=== PATIENT | female | born 1960 | race Two or more races ===

== ENCOUNTER 2024-03-31 14:48 | Inpatient (IN) | payer OTHER, MEDICAID, MEDICARE, SELFPAY ==
[2024-03-31 15:01] VITALS: BP 138/79; PULSE 76; RESP 16; TEMP 36.8; O2SAT 96; BMI 34.2
--- NOTE | 2024-03-31 15:01 | EKG_ITS ---
[facility] Test Date: 2024-03-31 Pat Name: MARITA ESCALANTE Department: Room: - Gender: Female Simulation Specialist: : [id number] Requested By: Kaushik Washington Order Number: [id number] Reading MD: Kaushik Washington Measurements Intervals [place] Rate: 68 P: -24 NV: 135 QRS: -18 QRSD: 88 T: 15 QT: 406 QTc: 433 Interpretive Statements SINUS RHYTHM Compared to ECG 11/09/2017 09:44:28 Incomplete right bundle-branch block no longer present /store/S0/[id number]/ecg/[id number].pdf
--- NOTE | 2024-03-31 15:01 | XR_ITS ---
Examination: AP chest single view Technique one AP portable upright chest single view Exam date and time: March 31, 2024 1529 hours Comparison November 09, 2017 INDICATIONS: Onset chest pain today FINDINGS: Normal heart size Lungs are clear. The osseous structures are intact IMPRESSION: No active disease
--- NOTE | 2024-03-31 15:01 | XR_ITS ---
EXAMINATION: Ankle, right 3 views . Technique: Ankle AP, oblique, lateral 3 views Date and time of exam: March 31, 2024 1523 hours INDICATIONS: Patient fell today with injury to the ankle, ankle pain. FINDINGS: Acute fracture distal fibular shaft with mild offset Displaced fracture medial malleolus Posterior malleolar region appears intact IMPRESSION: Bimalleolar fractures, bone detail reduced by the splint material
--- NOTE | 2024-03-31 15:03 | EDNOTE_ITS ---
<Statement entered by Jenae Woodward MD - 04/02/24 09:14> As co-signing physician, I was present and available for consult prn. I concur with the plan and care as documented by the midlevel provider. Lower Extremity Injury RME/HPI General Chief Complaint: Ankle/Foot Injury Stated Complaint: TO BE ADMITTED FOR SURGERY ON ANKLE Time Seen by Provider: 03/31/24 14:52 Arrival date/time: 03/31/24 14:48 RME / HPI RME / HPI Narrative: 63-year-old female patient with significant history of hypercholesterolemia, diabetes mellitus, was sent to us by PCP for ankle surgery. Patient's was seen and injury to the right ankle last March 10, went and seen by an orthopedic surgeon in [place], was advised to have surgery however patient opted to have surgery in [place]. Patient was noted to have bilateral malleolus fracture of the right ankle. Patient is not taking any aspirin. Not taking any blood thinner. Related Data Home Medications ?Medication ?Instructions ?Recorded ?Confirmed atorvastatin 10 mg tablet 10 mg PO QDAY 11/09/17 11/11/17 diclofenac sodium 50 mg 50 mg PO BID 11/09/17 11/11/17 tablet,delayed release metformin 500 mg tablet 500 mg PO QDAY 11/09/17 11/11/17 Previous Rx's ?Medication ?Instructions ?Recorded ibuprofen 800 mg tablet 800 mg PO QID PRN fever or pain 11/11/17 #30 tabs Allergies Allergy/AdvReac Type Severity Reaction Status Date / Time No Known Allergies Allergy Verified 03/31/24 14:53 Review of Systems Review of Systems Narrative Review of Systems: Review of system reviewed and within normal limits except mentioned in HPI ED Exam Narrative Physical exam: VITAL SIGNS: Reviewed. GENERAL APPEARANCE: Alert and interactive, follows commands, no acute distress, HEAD AND FACE: Non-traumatic. ENT: PERRL, pink conjunctivitis, eyelid no trauma, Mucous membrane moist. NECK: Supple, nontender, no nuchal rigidity. CHEST: No tenderness, no crepitus, no paradoxical movement, no retractions. LUNGS: Clear, well ventilated, symmetric, no rales, no wheezing, no ronchi, no stridor, good breath sounds bilaterally. HEART: Regular rate, regular rhythm, no murmur, no gallops. ABDOMEN: Soft, positive bowel sounds, nondistended, no guarding, nontender, no rebound, no masses, RECTAL: Deferred. GENITAL: Deferred. NEUROLOGICAL: Gross motor function intact sensory function intact, Appropriate for age. MUSCULOSKELETAL: low back nontender, full range of motion. EXTREMITIES: Right ankle swelling, bruising noted on the posterior aspect of the leg, limited range of motion. No tenderness of the calf muscle. Distal neurovascular status intact, was on a splint. SKIN: Color pink, dry, no rash, no lacerations, no abrasions, no contusions. LYMPHATICS: Deferred. Course Quality Measures none Orders Category Date Time Status COVID-19 Screening Questionnaire NOW Care 03/31/24 15:56 Active Decision to Admit X1 Care 03/31/24 15:56 Completed EKG (ED ONLY) *Do not use* NOW Care 03/31/24 15:02 Completed Consult to Cardiology Stat Cons 03/31/24 15:02 Ordered Consult to Orthopedic Stat Cons 03/31/24 15:07 Ordered EKG (ED Only) Stat Exams 03/31/24 15:01 Draft XR ankle comp RT min 3V Stat Exams 03/31/24 15:01 Completed XR chest 1V Stat Exams 03/31/24 15:01 Completed B-Type Natriuretic Peptide Stat Lab 03/31/24 15:21 Completed CBC Stat Lab 03/31/24 15:21 Completed Comprehensive Metabolic Panel Stat Lab 03/31/24 15:21 Completed Partial Thromboplastin Time Stat Lab 03/31/24 15:21 Completed Prothrombin Time with INR Stat Lab 03/31/24 15:21 Completed Troponin I Stat Lab 03/31/24 15:21 Completed Urinalysis, C/S if Indicated Stat Lab 03/31/24 15:01 Ordered HYDROcodone*/APAP 5/325 [[place] 5/325] Med 03/31/24 15:38 Discontinued 1 tab PO X1 ONE Vital Signs Vital signs: Vital Signs Temperature 98.3 F 03/31/24 15:01 Pulse Rate 76 03/31/24 15:01 Respiratory Rate 16 03/31/24 15:01 Blood Pressure 138/79 H 03/31/24 15:01 Pulse Oximetry (%) 96 03/31/24 15:01 Oxygen Delivery Method Room Air 03/31/24 15:01 Extremity Injury, Lower MDM Narrative MDM Narrative:: 63-year-old female patient with significant history of hypercholesterolemia, di abetes mellitus, was sent to us by PCP for ankle surgery. Patient's was seen and injury to the right ankle last March 10, went and seen by an orthopedic surgeon in [place], was advised to have surgery however patient opted to have surgery in [place]. Patient was noted to have bilateral malleolus fracture of the right ankle. Patient is not taking any aspirin. Not taking any blood thinner. Laboratory workup all came back unremarkable. X-ray of the ankle showed by malleolar fracture. Spoke with Dr. Hancock, petroleum geologist, and examined the patient the emergency room for clearance. Patient data External records reviewed:: None Clinical information provided by:: patient Social determinants that could affect healthcare access:: none Patient has the following chronic illnesses:: Hypertension prediabetic How is presenting disease/condition affected by chronic disease/condition?: uneffected by Evaluation data The following diagnostics were reviewed and interpreted by me:: lab results, radiology exam(s) and EKG tracing(s) Lab and/or radiology exams considered but not ordered:: None Interpretation Summary: laboratory couple came back unremarkable. X-ray of the ankle showed by malleolar fracture. Chest x-ray came back unremarkable. EKG as interpreted by me showed normal sinus rhythm, ventricular rate of [address] segment elevation or depression noted. Medications / Prescriptions Medications or Prescriptions considered but not ordered:: None Medication administrations:: Medication Administration History Discontinued Medications Hydrocodone Bitart/Acetaminophen (Hydrocodone/Apap 5/325 Tablet) 1 tab PO X1 ONE Stop: 03/31/24 15:39 Last Admin: 03/31/24 15:49 Dose: 1 tab Documented By: Taco Consultations Consultation(s) initiated? (list below): Yes Consultation #1 (Physician, Specialty, Details): Dr. Bartholomew thank you Diagnosis Extremity Injury, Lower Differential Diagnosis: ankle sprain and strain and ankle fracture Most likely diagnosis given after review of the tests above:: Bimalleolar fracture ankle Admission Indicated Admission indicated?: indicated Explain why admission is indicated or not indicated:: For further management Admission Request Was there a request for admission?: Yes Admission Attestation Admission request attestation: Discussed case with [Dr. Muse] from Hospitalist service regarding admission. Discussed patients ED course, exam findings, labs, and radiology results. The Hospitalist [agrees] to accept the patient for admission. Disposition Plan Disposition Plan: Admit Discharge Plan Plan Patient Disposition: Admit Acute Care w/in Hospital Prescriptions/Referrals Prescriptions/Med Rec: No Action metformin 500 mg Tablet 500 mg PO QDAY atorvastatin 10 mg Tablet 10 mg PO QDAY diclofenac sodium 50 mg Tablet,Delayed Release (Dr/Ec) 50 mg PO BID ibuprofen 800 mg tablet 800 mg PO QID PRN (Reason: fever or pain) Qty: 30 0RF Referrals: No Primary/Family,Physician [Primary Care Provider] - In 1 week Problem List Clinical Impression: Ankle fracture Patient/Caregiver Discharge Instructions Print Language: Czech Stand Alone Forms: Joann Award Info., Patient Portal Info Letter
[2024-03-31 15:27] LABS: Basophils % (Auto) 1 % (0-2.5); Eosinophils # (Auto) 0.2 Thou/mm3 (0.0-0.5); Eosinophils % (Auto) 3 % (0-10); Hematocrit 42.5 % (36.0-46.0); Hemoglobin 14.7 g/dL (12.0-16.0); Immature Granulocytes % (Auto) 0 % (0-0); Immature Granulocytes Auto 0.01 Thou/mm3 (0.00-0.00); Lymphocytes # (Auto) 2.1 Thou/mm3 (1.0-4.8); Lymphocytes % (Auto) 36 % (10-50); Mean Corpuscular HGB Conc 34.6 g/dl (31.0-37.0); Mean Corpuscular Hemoglobin 31.5 pg (25.0-35.0); Mean Corpuscular Volume 91 fL (80-100); Monocytes # (Auto) 0.8 Thou/mm3 (0.0-0.8); Monocytes % (Auto) 14 % (0-12); Neutrophils # (Auto) 2.7 Thou/mm3 (1.8-7.7); Neutrophils % (Auto) 47 % (37-80); Nucleated Red Blood Cell % 0 /100 WBC (0); Platelet Count 194 Thou/mm3 (140-440); Red Blood Count 4.67 Miln/mm3 (4.00-5.20); White Blood Count 5.8 Thou/mm3 (3.6-11.0)
[2024-03-31 15:46] LABS: B-Type Natriuretic Peptide 27 pg/mL (0-100)
[2024-03-31 15:47] LABS: Alanine Aminotransferase 34 U/L (10-49); Albumin, Serum 4.6 gm/dL (3.4-4.8); Albumin/Globulin Ratio 1.7 (1.2-2.2); Alkaline Phosphatase 102 U/L (46-116); Anion Gap 8 (7-16); Aspartate Amino Transferase 24 U/L (0-34); BUN/Creatinine Ratio 19 Ratio (12-20); Bilirubin,Total 0.6 mg/dL (0.3-1.2); Blood Urea Nitrogen 15 mg/dL (9-23); Calcium 9.7 mg/dL (8.3-10.6); Calcium (Corrected) 9.7 mg/dL (8.5-10.1); Carbon Dioxide 27.2 mMol/L (20.0-31.0); Chloride 107 mMol/L (98-107); Creatinine (Component) 0.8 mg/dL (0.6-1.3); Estimated Creatinine Clearance 65.4 mL/min (>60); Globulin 2.7 gm/dL (2.3-3.5); Glucose 110 mg/dL (74-106); Osmolality,Calculated 284 (275-295); Potassium 4.2 mMol/L (3.4-5.1); Sodium 142 mMol/L (136-145); Total Protein 7.3 gm/dL (5.7-8.2); Troponin I < 0.002 ng/mL (0.0-0.045); eGFR > 60 See Note
[2024-03-31 15:49] LABS: Partial Thromboplastin Time 27.7 Seconds (22.0-36.0); Prothrombin Time 10.7 Seconds (9.0-12.2)
[2024-03-31] MEDS: HYDROcodone/APAP 5/325 TABLET 1 TAB PO (15:49)
[2024-03-31 16:05] VITALS: BP 114/66; PULSE 68; RESP 19; TEMP 36.2; O2SAT 95
[2024-03-31 16:28] VITALS: RESP 95
--- NOTE | 2024-03-31 16:29 | ECHO_ITS ---
Transthoracic Echo Report Ht (in): 60 Wt (lb): 175 Exam Location: Portable Status: Emergency Cuff Setter Overlock: Anisa Stein Indications: Procedure Performed: BP: 132 / 69 HR: 72 Rhythm: Sinus Technical Quality: Fair MEASUREMENTS (Male / Female) Normal Values 2D ECHO LV Diastolic Diameter PLAX 3.8 cm 4.2 - 5.9 / 3.9 - 5.3 cm LV Systolic Diameter PLAX 2.5 cm IVS Diastolic Thickness 1.0 cm 0.6 - 1.0 / 0.6 - 0.9 cm LVPW Diastolic Thickness 1.1 cm 0.6 - 1.0 / 0.6 - 0.9 cm LV Relative Wall Thickness 0.5 LVOT Diameter 1.8 cm LA Volume Index 24.9 cm?/m? 16 - 28 cm?/m? Ascending Aorta Diameter 2.5 cm M-MODE Aortic Root Diameter MM 2.7 cm LA Systolic Diameter MM 3.5 cm LA Ao Ratio MM 1.3 AV Cusp Separation MM 2.1 cm DOPPLER AV Peak Velocity 135.0 cm/s AV Peak Gradient 7.3 mmHg AV Mean Gradient 3.0 mmHg AV Velocity Time Integral 29.5 cm LVOT Peak Velocity 105.0 cm/s LVOT Peak Gradient 4.4 mmHg LVOT Velocity Time Integral 21.8 cm LVOT Cardiac Index 2135.3 cm?/min?m? AV Area Cont Eq vti 1.9 cm? AV Area Cont Eq pk 2.0 cm? MV Peak Velocity 84.6 cm/s MV Peak Gradient 2.9 mmHg MV Mean Velocity 46.9 cm/s MV Mean Gradient 1.0 mmHg MV Area PHT 3.3 cm? Mitral E Point Velocity 63.1 cm/s Mitral A Point Velocity 82.9 cm/s Mitral E to A Ratio 0.8 LV E' Lateral Velocity 12.5 cm/s Mitral E to LV E' Lateral Ratio 5.0 LV E' Septal Velocity 6.6 cm/s Mitral E to LV E' Septal Ratio 9.5 FINDINGS Left Ventricle Normal left ventricular size, wall thickness, systolic function with no obvious regional wall motion abnormalities. The ejection fraction is visually estimated at 60-65%. Right Ventricle The right ventricle is normal in size and systolic function. Left Atrium The left atrium is normal by two-dimensional, color flow and Doppler imaging with no structural abnormalities, no thrombus formation present. Right Atrium The right atrium is normal by two-dimensional imaging, color flow and Doppler imaging with no struct ural abnormalities, no thrombus formation present. Atrial Septum The interatrial septum appears normal with no evidence of a shunt. Aorta The aorta is normal by two-dimensional, color flow and Doppler interrogation. Mitral Valve The mitral valve is normal by two-dimensional, color flow and Doppler interrogation. There is trace mitral valve regurgitation. Aortic Valve The aortic valve is trileaflet and normal by two-dimensional, color flow and Doppler interrogation. There is no significant aortic valve regurgitation. Tricuspid Valve The tricuspid valve is normal by two-dimensional, color flow and Doppler interrogation. There is no significant tricuspid valve regurgitation. Pulmonic Valve The pulmonic valve is not well visualized. There is no significant pulmonic valve regurgitation. Vessels The pulmonary artery appears normal. The inferior vena cava pulmonary and hepatic veins appear toney l. Pericardium The pericardium is normal by two-dimensional imaging. There is no significant pericardial effusion. CONCLUSIONS Normal LV size and function. Estimated EF 60-65% Normal RV size and function Trace MR. Jazmyne Snell (Electronically Signed) Final Date: 01 April 2024 13:20
--- NOTE | 2024-03-31 16:30 | ESHP_ITS ---
<Statement entered by Chiquita Sheikh MD - 04/05/24 12:14> I reviewed above note and agree with findings and plans. I have also personally examined the patient with medicine team and went over assessment and plan with medical team including internship coordinator and resident physician. Documentation for date of: 03/31/24 HPI History of Present Illness Chief complaint: ankle fracture History of present illness: 63-year-old female with past medical history of DM2 and hyperlipidemia was admitted to the hospital on 03/31/2024 after coming to the ED with complaints of fractured right lower leg after tripping over while walking. On assessment patient stated that she was in [place] during and around March 10 she was walking and tripped over and rolled her ankle wish she felt immediate pain afterwards and swelling. She went to hospital in [place] at that time and they did a x-ray of the right lower extremity and they stated that she did not have any fractures and she just take pain medication. She continue walking on the ankle without any brace or wrapping and on March 14 as she had another x- ray done and she was told that she had to missed place bones in her right lower leg. she stayed in [place] until March A- in which she again went to the hospital due to worsening pain and they did another x-ray of her right lower leg and it did show that she did have some fractures, but at this time she decided that she did not want surgery done in [place] and her family also stated that they would prefer to have surgery in the [facility]. In the hospital she had a soft cast done and was told to follow-up when she came back to the [facility]. She recently got back from [place] and decided to come to the ED to get her ankle checked. She denied any shortness of breath, cardiac issues, or burning during urination. ED course: Initially patient came in mildly hypertensive and afebrile. Initial labs for unremarkable with stable hemoglobin at 14.7. Initial imaging included ankle x- ray which showed acute fracture of distal fibula and displaced fracture of medial malleolus, and chest x-ray was unremarkable. EKG shows sinus rhythm. PMH: DM2 and hyperlipidemia Surgical excise: Hysterectomy Social exercise denies any alcohol, smoking, or drugs Review of Systems Review of Systems Narrative Review of Systems: Constitutional: Denies sweats, Denies weight loss/gain, Denies fever, Denies chills. HEENT: Denies hearing loss, Denies ear pain, Denies postnasal drip, Denies double vision, Denies blurry vision. Respiratory: Denies shortness of breath, Denies cough, Denies wheezing. Cardiovascular: Denies chest pain, Denies palpitations, Denies sudden loss of consciousness. GI: Denies blood in stool, Denies constipation, Denies abdominal pain, Denies difficulty swallowing, Denies nausea or vomit. : Denies urinary incontinence, Denies pain while urinating, Denies increased urinary frequency. MSK: Admits joint pain, Admits joint swelling, Denies numbness. Skin: Denies rash, Denies itching, Denies easy bruising. Neuro: Denies headaches, Denies dizziness, Denies seizures. Past Medical History Past Medical History Comments PMH COMMENT: PMH: DM2 and hyperlipidemia Surgical excise: Hysterectomy Social exercise denies any alcohol, smoking, or drugs Exam Vital Signs Temp Pulse Resp BP Pulse Ox O2 Del Method 97.2 F 68 19 114/66 95 Room Air 03/31/24 16:05 03/31/24 16:05 03/31/24 16:05 03/31/24 16:05 03/31/24 16:05 03/31/24 16:05 Narrative Exam General: A/O x3, no acute distress, well-nourished, well-developed Eyes: PERRL, EOMI. Anicteric, vision grossly intact. Ears: No ear pain, no ear discharge, Hearing grossly intact. Nose: No nasal discharge. Mouth/Throat: Dry mucous membranes, no redness, no lesions. Neck: Neck supple, non-tender, no cervical lymphadenopathy. Lungs: Clear SACHIN to auscultation and percussion, No accessory muscle use. Cardio: Normal S1/S2, regular rhythm, no murmurs, no JVD Abdomen: Soft, non-tender, no palpable masses, peristalsis present, no guarding or rebound. Extremities: Symmetrical, no significant deformities, no peripheral edema , non-tender, peripheral pulses presents. R LE swollen upto below knee with bruising, R LE with soft cast with ope toes, able to move toes and have sensation Skin: No rashes, no lesions, warm to touch. Neuro: No focal neurological deficits. Psych: Cooperative, appropriate mood and effect. Results: Labs 03/31/24 15:21 03/31/24 15:21 Labs: Short CBC 03/31/24 Range/Units 15:21 WBC 5.8 (3.6-11.0) Thou/mm3 Hgb 14.7 (12.0-16.0) g/dL Hct 42.5 (36.0-46.0) % Plt Count 194 (140-440) Thou/mm3 BMP 03/31/24 15:21 Sodium 142 Potassium 4.2 Chloride 107 Carbon Dioxide 27.2 BUN 15 Creatinine 0.8 Glucose 110 H Calcium 9.7 Cardiac Enzymes 03/31/24 Range/Units 15:21 Troponin I < 0.002 (0.0-0.045) ng/mL Liver Function 03/31/24 Range/Units 15:21 Total Bilirubin 0.6 (0.3-1.2) mg/dL AST 24 (0-34) U/L ALT 34 (10-49) U/L Alkaline Phosphatase 102 (46-116) U/L Albumin 4.6 (3.4-4.8) gm/dL Quality Measures Quality Measures none Advance care planning discussed with:: patient and spouse Medications Home Medications and Allergies Home Medications ?Medication ?Instructions ?Recorded ?Confirmed ?Type atorvastatin 10 mg tablet 10 mg PO QDAY 11/09/17 11/11/17 History diclofenac sodium 50 mg 50 mg PO BID 11/09/17 11/11/17 History tablet,delayed release metformin 500 mg tablet 500 mg PO QDAY 11/09/17 11/11/17 History Allergies Allergy/AdvReac Type Severity Reaction Status Date / Time No Known Allergies Allergy Verified 03/31/24 14:53 Visit Medications Acetaminophen (Acetaminophen 325 Mg Tablet) 650 mg PO Q6H PRN PRN Reason: pain and Fever >100.4 Stop: 04/30/24 16:23 Hydrocodone Bitart/Acetaminophen (Hydrocodone/Apap 5/325 Tablet) 1 tab PO Q4HR PRN PRN Reason: PAIN SCALE 4-6 (Moderate Stop: 04/05/24 16:23 Dextrose (Dextrose 50%-Water Inj 50 Ml Syringe) 25 ml IV Q15MIN PRN PRN Reason: BG 50-70 responsive npo pt Stop: 04/30/24 16:23 Dextrose (Dextrose 50%-Water Inj 50 Ml Syringe) 50 ml IV Q15MIN PRN PRN Reason: BG <50 OR BG <70 & pt unresponsive Stop: 04/30/24 16:23 Glucagon (Glucagon Inj 1 Mg Vial) 1 mg IM Q15MIN PRN PRN Reason: BG <70, and no IV access Insulin Human Lispro (Insulin Lispro (Admelog) 1 Unit/0.01 Ml Unit) 0 unit SC AC ARIAN; Protocol Stop: 04/30/24 16:59 Morphine Sulfate (Morphine Sulf Inj 10 Mg/Ml Vial) 1 mg IVP Q4H PRN PRN Reason: PAIN SCALE 7-10 (Severe Stop: 04/05/24 16:23 Ondansetron HCl (Ondansetron Inj 2 Mg/Ml Inj 2 Ml) 4 mg IV Q6H PRN; Protocol PRN Reason: NAUSEA OR VOMITING Stop: 04/30/24 16:23 Sennosides (Senna Tablet) 1 tab PO QDAY PRN; Protocol PRN Reason: constipation Stop: 04/30/24 16:23 Discontinued Medications Hydrocodone Bitart/Acetaminophen (Hydrocodone/Apap 5/325 Tablet) 1 tab PO X1 ONE Stop: 03/31/24 15:39 Last Admin: 03/31/24 15:49 Dose: 1 tab Assessment & Plan Plan 63-year-old female with past medical history of DM2 and hyperlipidemia was admitted to the hospital on 03/31/2024 for acute fracture of distal fibula and displaced fracture of medial malleolus. #Acute fracture of distal fibula #Displaced fracture of medial malleolus ? Patient stated that she rolled her ankle after tripping while walking in [place] and had also been walking on her ankle like this for 5 days before being told that she had a fracture and placed on a soft cast ?ankle x-ray which showed acute fracture of distal fibula and displaced fracture of medial malleolus - Muse perioperative risk of 0.2% risk of myocardial infarction or cardiac arrest intraoperatively or upto 30 days post-op. -RCRI 0 points, 3.9% risk of major cardiac event Plan: ? Will place n.p.o. after midnight for possible surgical intervention ? Holding anticoagulation for now in the setting of possible surgical intervention ?Cardiology consulted for cardiac clearance ? Orthopedic surgeon consulted orthopedic recommendations #DM2 ? A1c for a.m. labs ? Glucose 110 today - Monitor BMP #Hyperlipidemia ? Will restart patient's atorvastatin Disposition: Patient admitted to telemetry for fibula fracture (R). Diet: carb low, NPO midnight GI prophylaxis: not indicated DVT prophylaxis: SCDs Code: Full code Case disclosed with Attending Dr. Sheikh and My senior Dr. Muse PGY2. Alexis Lloydpo PGY1 Senior Resident Attestation: The patient is a 63-year-old female with significant past medical history of diabetes mellitus type 2 and hyperlipidemia presented with chief complaint of right ankle pain after tripping over while walking. The incidence was on March 10 while she was in [place], where she was recommended to undergo surgery but she wanted to get her surgery done in the [place]. X-ray right ankle is significant for acute fracture of distal fibula and displaced fracture of medial malleolus. In the ED her vitals were fairly stable, EKG and CXR was unremarkable. Cardiology consultation was done with Dr. Hancock, and ordered HERMINIO for cardiac clearance. Sri on board for orthopedic surgery who will proceed with ORIF tomorrow morning. Patient is kept n.p.o. after midnight and is currently not on any chemical DVT prophylaxis. We will continue to monitor BMP for blood sugar in the morning, and decide on insulin regimen. I discussed with and supervised the internship coordinator physician involved in the care of this patient. I personally saw and examined the patient and discussed the assessment and plan with the entire medicine team, including my attending. I agree with the assessment and plan as documented above. David Muse MD PGY2 Internal Medicine
--- NOTE | 2024-03-31 16:41 | PC.CC ---
Patient is a 63 year-old female who presents to the hospital for surgery of ankle. Stephanie JENSEN made [id number] contact with patient. ASW introduced self, role, and reason for visit. Patient appeared alert and oriented to self, location, and situation. Patient was pleasant and engaged in initial assessment. Patient reports that should she not be able to make her own medical decisions her , Patrice Ryan would be her medical decision maker. Patient reports she slipped and fell at home on March 10, 2024 while at home. Patient stated prior to this fall she was able to ambulate independently and complete her own ADLs. However, since the fall she has been using a wheelchair and walker to help with ambulation and her has been helping her complete her ADLs. Patient receives primary care with Sujata Berman. Upon discharge the patient plans on going home but is willing to go to a SNF for rehab as it is just her and her at home and he at times struggles with helping her complete her ADLs. human services instructor to follow-up with any discharge needs.
[2024-03-31 18:10] VITALS: BP 128/84; PULSE 77; RESP 19; TEMP 36.6; O2SAT 94
[2024-03-31] MEDS: ONDANSETRON INJ 2 MG/ML INJ 2 ML 4 MG IV (18:53)
[2024-03-31] MEDS: MORPHINE SULF INJ 10 MG/ML VIAL IVP (18:53)
[2024-03-31 19:36] VITALS: BMI 33.6
[2024-03-31 20:00] VITALS: BP 121/71; PULSE 64; RESP 18; TEMP 36.7; O2SAT 96
[2024-03-31 22:13] LABS: Collection Type, Urine Clean Catch; RBC,Urine 0 /hpf (0-3)
[2024-03-31 22:40] LABS: Bilirubin,Urine Negative (Negative); Blood,Urine Negative (Negative); Clarity,Urine Clear (Clear/Hazy); Color,Urine Lt-Yellow (Lt Yel-Yel); Culture Indicated,Urine Not Indicated; Glucose, Urine Negative (Negative); Ketones,Urine Negative (Negative); Leukocyte Esterase,Urine Negative (Negative); Nitrite,Urine Negative (Negative); Protein,Urine Negative (Neg - Trace); Specific Gravity,Urine 1.009 (1.001-1.035); Squamous Epithelial Cell,Urine 1 /hpf (0-5); Urobilinogen,Urine Negative mg/dL (0.0-1.0); WBC,Urine 1 /hpf (0-5)
--- NOTE | 2024-03-31 23:51 | ESCONSULT_ITS ---
RE: MARITA ESCALANTE : 1960 DATE OF CONSULTATION: 03/31/2024 CONSULTING PHYSICIAN: Dr. Bartholomew. REASON FOR CONSULTATION: Evaluation of cardiac clearance for surgery for fracture of leg HISTORY OF PRESENT ILLNESS: The patient is a 63-year-old female with a history of hypertension, diabetes mellitus, hypercholesterolemia, possible fracture of the right leg after over while walking. The patient apparently was in [place] during [place] time. She was walking and rolled her ankle. She immediately fell afterwards. She did go to the hospital in [place]. At that time, they did an x-ray and she continued to walk, ankle without any brace and she had another x-ray done. She was told that she had misplaced the bone, but she stayed in [place] until March and she again went to the hospital due to worsening of pain. Did have fractures, but now she recently got a fracture from [place] and decided to go to the emergency room where she found a fracture of the hip and she also has a history of hypertension. No cardiac history, but because of the hypertension history, cxardiac clearance requested , the patient is found to have acute fracture of the distal fibula and distal fracture of the medial malleolus and recommended to have surgical intervention. The patient has no cardiac history. No chest pain or shortness of breath. She has never had any cardiac workup, never been told to have heart problems, stroke. She does walk more than 5 blocks without any restrictions. She can also climb more than 2 flights of stairs, suggesting a good effort tolerance prior to the fall. ALLERGIES: NONE. MEDICATIONS: The patient takes atorvastatin 10 mg daily, metformin 500 mg daily. SOCIAL HISTORY: The patient is not a smoker, does drink alcoholic beverages. FAMILY HISTORY: Noncontributory. REVIEW OF SYSTEMS: CARDIOVASCULAR: no limitations. GASTROINTESTINAL: No history of nausea or vomiting. GENITOURINARY: No history of frequency, urgency or dysuria. PHYSICAL EXAMINATION: GENERAL: A well-nourished female, alert, awake, comfortable, in no acute distress. VITAL SIGNS: Blood pressure 120/70; pulse 64, regular; respirations 16; temperature normal. HEENT: Head is atraumatic, normocephalic. Eyes normal. ENT normal. NECK: Supple. No JVD. CHEST: Symmetrical. LUNGS: Clear. HEART: S1 and S2 regular. S4 gallop heard. ABDOMEN: soft GENITOURINARY AND RECTAL: Not performed. CENTRAL NERVOUS SYSTEM: Normal. Electrocardiogram showed sinus rhythm, within normal limits and nonspecific changes. IMPRESSION/ASSESSMENT: Fracture of the fibula and malleolus. RECOMMENDATIONS: Recommended to have surgery. Based on today's clinical exam, she appears low cardiac risk for surgery under general anesthesia. Recommend getting a cardiac echo in the morning as well cardiac workup. I would like to thank for referring this patient with cardiovascular issues. I would be glad to follow the patient with you. DT: 22:05:34 TT: 22:29:00 Ref: [id number] - TID: [id number] MTDD
[2024-04-01] VITALS (12 sets, daily range): BP systolic 109–153; BP diastolic 61–89; PULSE 67–103; RESP 12–95; TEMP 36.1–36.9; O2SAT 93–99
[2024-04-01 05:52] LABS: Basophils % (Auto) 1 % (0-2.5); Eosinophils # (Auto) 0.2 Thou/mm3 (0.0-0.5); Eosinophils % (Auto) 4 % (0-10); Hematocrit 40.1 % (36.0-46.0); Hemoglobin 13.5 g/dL (12.0-16.0); Immature Granulocytes % (Auto) 0 % (0-0); Immature Granulocytes Auto 0.01 Thou/mm3 (0.00-0.00); Lymphocytes % (Auto) 39 % (10-50); Mean Corpuscular HGB Conc 33.7 g/dl (31.0-37.0); Mean Corpuscular Hemoglobin 31.3 pg (25.0-35.0); Mean Corpuscular Volume 93 fL (80-100); Monocytes # (Auto) 0.7 Thou/mm3 (0.0-0.8); Monocytes % (Auto) 13 % (0-12); Neutrophils # (Auto) 2.2 Thou/mm3 (1.8-7.7); Neutrophils % (Auto) 44 % (37-80); Nucleated Red Blood Cell % 0 /100 WBC (0); Platelet Count 159 Thou/mm3 (140-440); RDW Standard Deviation 41.1 fL (36.4-46.3); Red Blood Count 4.31 Miln/mm3 (4.00-5.20); White Blood Count 5.1 Thou/mm3 (3.6-11.0)
[2024-04-01 06:03] LABS: Glucose Estimated Average 143 mg/dL (80-131); Hemoglobin A1C 6.6 % Hgb (4.8-6.0)
[2024-04-01 06:04] LABS: Partial Thromboplastin Time 28.2 Seconds (22.0-36.0); Prothrombin Time 10.9 Seconds (9.0-12.2)
[2024-04-01 06:15] LABS: Alanine Aminotransferase 32 U/L (10-49); Albumin, Serum 4.4 gm/dL (3.4-4.8); Anion Gap 8 (7-16); Aspartate Amino Transferase 22 U/L (0-34); BUN/Creatinine Ratio 21 Ratio (12-20); Bilirubin,Total 0.6 mg/dL (0.3-1.2); Blood Urea Nitrogen 19 mg/dL (9-23); Calcium 9.6 mg/dL (8.3-10.6); Carbon Dioxide 28.6 mMol/L (20.0-31.0); Chloride 105 mMol/L (98-107); Creatinine (Component) 0.9 mg/dL (0.6-1.3); Estimated Creatinine Clearance 57.6 mL/min (>60); Glucose 104 mg/dL (74-106); Magnesium 2.1 mg/dL (1.6-2.6); Osmolality,Calculated 285 (275-295); Phosphorous 4.5 mg/dL (2.4-5.1); Potassium 4.3 mMol/L (3.4-5.1); Sodium 142 mMol/L (136-145); Total Protein 6.6 gm/dL (5.7-8.2); eGFR > 60 See Note
[2024-04-01 06:16] LABS: Alkaline Phosphatase 92 U/L (46-116); Calcium (Corrected) 9.6 mg/dL (8.5-10.1); Cardiac Risk Estimate 2.8 RATIO (3.7-5.6); Cholesterol 94 mg/dL (132-200); Globulin 2.2 gm/dL (2.3-3.5); HDL Cholesterol 33 mg/dL (40-60); LDL Cholesterol,Calculated 41 mg/dL (0-130); Triglycerides 101 mg/dL (30-150)
--- NOTE | 2024-04-01 10:05 | ESPR_ITS ---
<Statement entered by Chiquita Sheikh MD - 04/05/24 12:16> I reviewed above note and agree with findings and plans. I have also personally examined the patient with medicine team and went over assessment and plan with medical team including campus recruiting internship and resident physician. Documentation for date of: 04/01/24 Subjective Subjective Interval history: Patient was seen at bedside this morning. No overnight events. Patient states that her pain is well-controlled today. She underwent open reduction with internal fixation of fractures by orthopedic surgeon. No other complaints at this time. Echo showed EF of 60-65%. Exam Vital Signs Temp Pulse Resp BP Pulse Ox O2 Del Method 97.9 F 67 15 125/82 96 Room Air 04/01/24 08:00 04/01/24 08:00 04/01/24 08:00 04/01/24 08:00 04/01/24 08:00 04/01/24 08:00 Narrative Exam General: A/O x3, no acute distress, well-nourished, well-developed Eyes: PERRL, EOMI. Anicteric, vision grossly intact. Ears: No ear pain, no ear discharge, Hearing grossly intact. Nose: No nasal discharge. Mouth/Throat: Dry mucous membranes, no redness, no lesions. Neck: Neck supple, non-tender, no cervical lymphadenopathy. Lungs: Clear SACHIN to auscultation and percussion, No accessory muscle use. Cardio: Normal S1/S2, regular rhythm, no murmurs, no JVD Abdomen: Soft, non-tender, no palpable masses, peristalsis present, no guarding or rebound. Extremities: Symmetrical, no significant deformities, no peripheral edema , non-tender, peripheral pulses presents. R LE covered with soft cast open at toes. able to move toes. Skin: No rashes, no lesions, warm to touch. Neuro: No focal neurological deficits. Psych: Cooperative, appropriate mood and effect. Objective Labs 04/01/24 05:16 04/01/24 05:16 Labs: Laboratory Results - last 24 hr 03/31/24 03/31/24 04/01/24 15:21 21:00 05:16 WBC 5.8 5.1 RBC 4.67 4.31 Hgb 14.7 13.5 Hct 42.5 40.1 MCV 91 93 MCH 31.5 31.3 MCHC 34.6 33.7 RDW Std Deviation 40.0 41.1 Plt Count 194 159 D Neut % (Auto) 47 44 Lymph % (Auto) 36 39 [place] % (Auto) 14 H 13 H Eos % (Auto) 3 4 Baso % (Auto) 1 1 Neut # (Auto) 2.7 2.2 Lymph # (Auto) 2.1 2.0 Parke # (Auto) 0.8 0.7 Eos # (Auto) 0.2 0.2 Baso # (Auto) 0.0 0.0 Immature Gran # (Auto) 0.01 H 0.01 H Absolute Nucleated RBC 0.00 0.00 Immature Gran % 0 0 Nucleated RBC % 0 0 PT 10.7 10.9 INR 1.0 1.0 APTT 27.7 28.2 Sodium 142 142 Potassium 4.2 4.3 Chloride 107 105 Carbon Dioxide 27.2 28.6 Anion Gap 8 8 BUN 15 19 Creatinine 0.8 0.9 Estim Creat Clear Calc 65.4 57.6 L eGFR > 60 > 60 BUN/Creatinine Ratio 19 21 H Glucose [address] Glu mg/dL 143 H Hemoglobin A1c 6.6 H Calculated Osmolality 284 285 Calcium 9.7 9.6 Corrected Calcium 9.7 9.6 Phosphorus 4.5 Magnesium 2.1 Total Bilirubin 0.6 0.6 AST 24 22 ALT 34 32 Alkaline Phosphatase 102 92 Troponin I < 0.002 B-Natriuretic Peptide 27 Total Protein 7.3 6.6 Albumin 4.6 4.4 Globulin 2.7 2.2 L Albumin/Globulin Ratio 1.7 2.0 Triglycerides 101 Cholesterol 94 L LDL Cholesterol, Calc 41 HDL Cholesterol 33 L Cholesterol/HDL Ratio 2.8 L Ur Collection Type Clean Catch Urine Color Lt-Yellow Urine Clarity Clear Urine pH 6.0 Ur Specific [place] 1.009 Urine Protein Negative Urine Glucose (UA) Negative Urine Ketones Negative Urine Blood Negative Urine Nitrite Negative Urine Bilirubin Negative Urine Urobilinogen (Auto) Negative Ur Leukocyte Esterase Negative Urine RBC 0 Urine WBC 1 Ur Squamous Epith Cells 1 Urine Bacteria None Ur Culture Indicated? Not Indicated Quality Measures Quality Measures none Advance care planning discussed with:: patient, spouse and child Assessment & Plan Assessment Current Active Medications: Generic Name Dose Route Start Last Admin Trade Name Freq PRN Reason Stop Dose Admin Acetaminophen 650 mg 03/31/24 16:24 Acetaminophen 325 Mg Tablet PO 04/30/24 16:23 Q6H PRN pain and Fever >100.4 Hydrocodone Bitart/Acetaminophen 1 tab 03/31/24 16:24 Hydrocodone/Apap 5/325 Tablet PO 04/05/24 16:23 Q4HR PRN PAIN SCALE 4-6 (Moderate Morphine Sulfate 1 mg 03/31/24 16:24 03/31/24 18:53 Morphine Sulf Inj 10 Mg/Ml Vial IVP 04/05/24 16:23 1 mg Q4H PRN Administration PAIN SCALE 7-10 (Severe Ondansetron HCl 4 mg 03/31/24 16:24 03/31/24 18:53 Ondansetron Inj 2 Mg/Ml Inj 2 Ml IV 04/30/24 16:23 4 mg Q6H PRN Administration NAUSEA OR VOMITING Protocol Sennosides 1 tab 03/31/24 16:24 Senna Tablet PO 04/30/24 16:23 QDAY PRN constipation Protocol Plan 63-year-old female with past medical history of DM2 and hyperlipidemia was admitted to the hospital on 03/31/2024 for acute fracture of distal fibula and displaced fracture of medial malleolus. #Acute fracture of distal fibula #Displaced fracture of medial malleolus #S/p open reduction with internal fixation of fractures ? Patient stated that she rolled her ankle after tripping while walking in [place] and had also been walking on her ankle like this for 5 days before being told that she had a fracture and placed on a soft cast ?ankle x-ray which showed acute fracture of distal fibula and displaced fracture of medial malleolus - Almaz perioperative risk of 0.2% risk of myocardial infarction or cardiac arrest intraoperatively or upto 30 days post-op. -RCRI 0 points, 3.9% risk of major cardiac event -Echo showed EF of 60-65%. -She underwent open reduction with internal fixation of fractures by orthopedic surgeon. Plan: ? Holding anticoagulation for now in the setting of possible surgical intervention ?Cardiology consulted for cardiac clearance, patient cleared ? Orthopedic surgeon consulted orthopedic recommendations #DM2 ? A1c 6.6 ? Glucose 104 today -Will continue to monitor #Hyperlipidemia ? Will restart patient's atorvastatin Disposition: Patient admitted to telemetry s/p open reduction with internal fixation Diet: carb low GI prophylaxis: not indicated DVT prophylaxis: SCDs Code: Full code Case disclosed with Attending Dr. Sheikh and My senior Dr. Muse PGY2. Alexis Moreadriel Maxwell PGY1 Senior Resident Attestation: The patient is a 63-year-old female with significant past medical history of diabetes mellitus type 2 and hyperlipidemia presented with chief complaint of right ankle pain after tripping over while walking. The incidence was on March 10 while she was in [place], where she was recommended to undergo surgery but she wanted to get her surgery done in the [place]. She was cleared by production planning manager Dr. Hancock for surgery, as LVEF was 60 to 65%. Patient underwent: 1. Open reduction internal fixation of right lateral malleolus with 3 hole distal fibular interlocking screw 2 open reduction internal fixation of medial malleolus with 2 cannulated screw We will continue to manage her pain. The patient will be getting PT evaluation tomorrow, and possible DC to SNF after that. I discussed with and supervised the campus recruiting internship physician involved in the care of this patient. I personally saw and examined the patient and discussed the assessment and plan with the entire medicine team, including my attending. I agree with the assessment and plan as documented above. David Muse MD PGY2 Internal Medicine
--- NOTE | 2024-04-01 10:35 | XR_ITS ---
Examination: Right ankle 2 views Fluoroscopy Exam date and time: April 01, 2024 at 1349 hrs. Indications: Bimalleolar ankle fractures, operative reduction internal fixation fracture today. Technique And Findings: Operative reduction internal fixation fractures distal fibular shaft and medial malleolus Anatomic alignment Orthopedic hardware satisfactory position Fluoroscopy 34 seconds radiation dose 1.19 milligray Impression: Operative reduction internal fixation bimalleolar fractures with anatomic alignment
--- NOTE | 2024-04-01 13:31 | SUR.PHASEI ---
1331: Pt. AAOx4, vitals stable, breathing unlabored, complaint of slight pain, will give pain medicine, dressing to right ankle CDI, no active bleed noted, bilateral popliteal pulses strong and regular, cap refill to bilateral feet less than 3 seconds, report received from MD Lux and Michael FELIX.
[2024-04-01] MEDS: fentaNYL CIT INJ 50 mCg/ML AMP 2ML IV ×2 (13:44→14:01)
--- NOTE | 2024-04-01 13:47 | XR_ITS ---
EXAMINATION: Ankle, right 3 views . Technique: Ankle AP, oblique, lateral 3 views Date and time of exam: April 01, 2024 1402 hrs. Indications: Postop reduction ankle fractures Findings: Operative reduction internal fixation lateral and medial malleolar fractures with anatomic alignment Orthopedic hardware is satisfactorily positioned No ankle dislocation Impression: Operative reduction internal fixation bimalleolar fractures with satisfactory alignment
--- NOTE | 2024-04-01 13:49 | ESOP_ITS ---
Date of Procedure 04/01/24 Pre Op Diagnosis Over 2 weeks old bimalleolar displaced fracture right ankle Post Op Diagnosis Same Procedure 1. Open reduction internal fixation of right lateral malleolus with 3 hole distal fibular interlocking screw 2 open reduction internal fixation of medial malleolus with 2 cannulated screw Findings It is a bimalleolar fracture with the displacement. Ankle mortise is also displaced or widened. Procedure Description The patient was given general endotracheal anesthesia. Following that part was thoroughly prepped and draped. Intravenous antibiotics was given at the time of anesthesia 1. Open reduction internal fixation of lateral malleolus. A skin incision was made from the tip of lateral malleolus extending proximally along the posterior lateral border of the lateral malleolus and the fibula. Length of the incision was about 4 to 5 inches long. Deeper dissection was carried out. Care was taken not to damage the sural nerve. The muscles were reflected from the posterior lateral aspect. Soft tissue was reflected. Fracture fragment was exposed. With the help of curette and [place] the soft tissue interposed between the fracture fragment was removed. Following that with the help of reduction clamp the fracture was reduced. Ankle mortise was very well-maintained Using lag technique drill hole was made from the anterior surface to the posterior surface and partially-threaded 4.0 mm cancellous screw was placed. It held at the fracture fragment together Following that plate was mounted over the lateral aspect of the fibula. 1 cortical screw was placed distally and 1 proximally. Following that 4 more interlocking screw was placed distally. 1 cortical screw was placed proximally and 1 interlocking screw was placed proximally. Wound was irrigated with antibiotic solution every 4 to 5 minutes. The position of the fracture and the screws were checked regularly before putting it. Ankle mortise was very well- maintained The soft tissue was then closed with the help of his 2-0 Vicryl 2 open reduction internal fixation of medial malleolus. Another a skin incision was made from the tip of medial malleolus extending proximally for about 3 to 4 inches. Deeper dissection carried out. The soft tissue was then reflected from the distal tibia and medial malleolus. Saphenous vein was isolated. Following that the fracture was exposed and reduced with the help of reduction clamp. Following that 2 guidepin was passed from the distal fracture fragment into the proximal 1. Position was checked under C arm. Following that after measuring appropriate size cannulated screw was placed. Drilling was done into the near cortex and then appropriate size screw was placed. The guidepin was removed. Ankle mortise was checked and found to be very well-maintained. Medial malleolus was very well reduced Soft tissue was closed with 2-0 Vicryl in interrupted fashion. Skin was closed with jo ann The skin on the lateral side was also closed with a jo ann To cleaning the wound with hydrogen peroxide solution a sterile dressing was applied. Short leg splint was applied and tourniquet pressure was released Patient tolerated procedure very well. Estimated blood loss 10 mL mL. Prognosis in this case is good. Anesthesia GETA and other Pathology / specimen None Estimated Blood Loss 10 Surgeon Hua Bartholomew MD Surgical Staff Operation Date: 04/01/24 10:30 Case Staff Anesthesiologist: Oc Lux RNcompliance attorney: Ria Raygoza
[2024-04-01] MEDS: CYCLObenzaPRINE 5 MG TABLET 10 MG PO (13:51)
--- NOTE | 2024-04-01 14:19 | SUR.PHASEI ---
1419: Pt. AAOx4, vitals stable, breathing unlabored, no complaint of pain or nausea, dressing to right ankle CDI, no active bleed noted, pt. able to wiggle bilateral toes, cap refill to bilateral toes less than 3 seconds, pt. tolerated bites of jello well, gave report to Maya FELIX prior to transfer to room 374A.
--- NOTE | 2024-04-01 15:10 | PC.SS ---
Follow up note: SS spoke to daughter, Tamela, regarding final d/c plans. SS discussed SNF vs HH. Patient went to surgery today. Daughter states she will be speaking with her father and the rest of the family to decide. SS sent out inquiry to all local SNF's as well as completed [facility]. Pending decision by family and PT evaluation.
--- NOTE | 2024-04-01 15:39 | PD.ANESPROG ---
Documentation for date of: 04/01/24 ANESTHESIA NOTE: Patient had general LMA anesthesia and R adductor canal and popliteal nerve blocks for R ankle ORIF earlier today. Pre-op, her R leg and foot was in cast, which was removed intra-op and showed swelling and bruising for R distal LE. She did well intra-op and in PACU and her post op pain was controlled and was later transferred out of PACU. Oc Lux MD Anesthesia Progress Note Progress Note Most recent Vital Signs: Last Vital Signs Temp 97.9 F 04/01/24 14:16 Pulse 80 04/01/24 14:16 Resp 12 04/01/24 14:16 BP 134/79 H 04/01/24 14:16 Pulse Ox 97 04/01/24 14:16 O2 Del Method Room Air 04/01/24 08:00 O2 Flow Rate 2 04/01/24 14:16
--- NOTE | 2024-04-01 16:20 | ESCONSULT_ITS ---
RE: HERNANDEZ LANDEROS : 1960 DATE OF CONSULTATION: 03/31/2024 Thank you, Dr. Elkins, for asking me to consult with the patient whom I saw on 03/31/2024. HISTORY OF PRESENT COMPLAIN: As per history available, the patient was in [place] when she tripped and fell. The injury happened about two and half weeks back or so. The patient went to hospital in [place] and x-ray was obtained. The patient was told that she has broken ankle and she needed surgery. However, she decided to have surgery done in the [place], so she came back here. I was contacted by Dr. Rodríguez on 03/31/2024 about the patient. I advised Dr. Rodríguez to send the patient to the emergency room and we will take care from there. The patient was sent to the emergency room and from there I was contacted. The patient has pain and swelling of the right ankle. PAST MEDICAL HISTORY: The patient has a history of diabetes mellitus and hyperlipidemia. PAST SURGICAL HISTORY: Include hysterectomy. DRUG HISTORY: The patient is on metformin, pain medication, and atorvastatin. ALLERGIES: NIL KNOWN. FAMILY HISTORY AND SOCIAL HISTORY: The patient is retired, nonsmoker and does not drink. PHYSICAL EXAMINATION: GENERAL: Fully alert and oriented lady. VITAL SIGNS: Pulse is 74 per minute. Blood pressure is 120/76. NECK: Soft, supple. No mass felt. Trachea centrally placed. CARDIOVASCULAR SYSTEM: First and second heart sound normal. No murmur heard. RESPIRATORY SYSTEM: Bilateral vesicular breath sounds. CHEST: Clear. ABDOMEN: Soft. No mass felt. Bowel sounds present. EXTREMITIES: Right ankle examination reveals swelling 1+. There is 2+ tenderness. Neurovascular: It is intact. DIAGNOSTIC DATA: X-ray revealed a displaced bimalleolar fracture of the right ankle. The patient and her family were explained that she needs fixation with the screws and plate. Risks with anesthesia was explained and that includes, but not limited to reaction to anesthetics agents, cardiac arrest, or rarely it might be fatal. Risk with operation includes infection and if that happens, the patient may need further surgical procedure. I also explained that since the fracture is two and a half weeks old, it may be difficult to reduce it . At the same time, I told her it is very much possible to reduce it quite well. No guarantees given regarding the outcome of the procedure. Even after healing up quite good, the patient may have stiffness with range of motion restricted. The patient is fully aware of that. The patient was seen by Dr. Gary Hancock, the metal fence erector and has been cleared for surgical procedure. Accordingly surgery is booked for 04/01/2024. Appropriate lab was done. DT: 13:44:54 TT: 15:51:00 Ref: [id number] - TID: [id number]
--- NOTE | 2024-04-01 16:21 | PC.NURSE ---
NOTIFIED DR. Mejia PATIENT IS DIABETIC NO SLIDING SCALE OR BLOOD SUGAR CHECKS. DR. Mejia WILL ADD NEW ORDERS
[2024-04-01] MEDS: ceFAZolin/D5W 1 GM IVPB 1 GM/50 ML BAG IV (17:58)
[2024-04-01] MEDS: INSULIN LISPRO (AdmeLOG) 1 UNIT/0.01 ML UNIT 2 UNIT SC (22:47)
[2024-04-02] VITALS (9 sets, daily range): BP systolic 96–128; BP diastolic 52–72; PULSE 60–83; RESP 16–95; TEMP 36.2–36.9; O2SAT 94–95
--- NOTE | 2024-04-02 00:58 | PC.NURSE ---
message sent to [facility] constance cee.
--- NOTE | 2024-04-02 01:03 | PC.NURSE ---
engineering went in pt room and notified rn unable to apply overhead trapeze at this time because pt is on the bed.
[2024-04-02] MEDS: ceFAZolin/D5W 1 GM IVPB 1 GM/50 ML BAG IV (01:55)
[2024-04-02 05:35] LABS: Basophils % (Auto) 0 % (0-2.5); Eosinophils % (Auto) 0 % (0-10); Hematocrit 36.2 % (36.0-46.0); Hemoglobin 12.8 g/dL (12.0-16.0); Immature Granulocytes % (Auto) 0 % (0-0); Immature Granulocytes Auto 0.04 Thou/mm3 (0.00-0.00); Lymphocytes # (Auto) 1.4 Thou/mm3 (1.0-4.8); Lymphocytes % (Auto) 12 % (10-50); Mean Corpuscular HGB Conc 35.4 g/dl (31.0-37.0); Mean Corpuscular Hemoglobin 31.7 pg (25.0-35.0); Mean Corpuscular Volume 90 fL (80-100); Monocytes # (Auto) 0.4 Thou/mm3 (0.0-0.8); Monocytes % (Auto) 4 % (0-12); Neutrophils # (Auto) 9.3 Thou/mm3 (1.8-7.7); Neutrophils % (Auto) 83 % (37-80); Nucleated Red Blood Cell % 0 /100 WBC (0); Platelet Count 191 Thou/mm3 (140-440); RDW Standard Deviation 37.2 fL (36.4-46.3); Red Blood Count 4.04 Miln/mm3 (4.00-5.20); White Blood Count 11.2 Thou/mm3 (3.6-11.0)
[2024-04-02 06:29] LABS: Alanine Aminotransferase 26 U/L (10-49); Albumin, Serum 4.5 gm/dL (3.4-4.8); Albumin/Globulin Ratio 1.9 (1.2-2.2); Alkaline Phosphatase 91 U/L (46-116); Anion Gap 10 (7-16); Aspartate Amino Transferase 18 U/L (0-34); BUN/Creatinine Ratio 26 Ratio (12-20); Bilirubin,Total 0.5 mg/dL (0.3-1.2); Blood Urea Nitrogen 18 mg/dL (9-23); Calcium 9.8 mg/dL (8.3-10.6); Calcium (Corrected) 9.8 mg/dL (8.5-10.1); Carbon Dioxide 24.3 mMol/L (20.0-31.0); Chloride 104 mMol/L (98-107); Creatinine (Component) 0.7 mg/dL (0.6-1.3); Estimated Creatinine Clearance 74.1 mL/min (>60); Globulin 2.4 gm/dL (2.3-3.5); Glucose 161 mg/dL (74-106); Magnesium 2.1 mg/dL (1.6-2.6); Osmolality,Calculated 280 (275-295); Potassium 3.9 mMol/L (3.4-5.1); Sodium 138 mMol/L (136-145); Total Protein 6.9 gm/dL (5.7-8.2); eGFR > 60 See Note
--- NOTE | 2024-04-02 10:53 | ESPR_ITS ---
<Statement entered by Chiquita Sheikh MD - 04/05/24 12:21> I reviewed above note and agree with findings and plans. I have also personally examined the patient with medicine team and went over assessment and plan with medical team including international travel consultant and resident physician. Documentation for date of: 04/02/24 Subjective Subjective Interval history: Patient was seen at bedside this morning. No overnight events. Spoke with orthopedic surgeon who mentions to start patient on aspirin 81 twice daily for total 2 weeks and then discontinue. Patient is still pending physical therapy as well as [facility] facility placement. Orthopedic surgeon stated patient was good to be discharged home and to follow-up with him as an outpatient. No other complaints at this time. Exam Vital Signs Temp Pulse Resp BP Pulse Ox O2 Del Method O2 Flow Rate 97.4 F 69 16 106/64 94 L Room Air 2 04/02/24 08:00 04/02/24 08:03 04/02/24 08:03 04/02/24 08:00 04/02/24 08:00 04/02/24 08:00 04/01/24 20:00 Narrative Exam General: A/O x3, no acute distress, well-nourished, well-developed Eyes: PERRL, EOMI. Anicteric, vision grossly intact. Ears: No ear pain, no ear discharge, Hearing grossly intact. Nose: No nasal discharge. Mouth/Throat: Dry mucous membranes, no redness, no lesions. Neck: Neck supple, non-tender, no cervical lymphadenopathy. Lungs: Clear SACHIN to auscultation and percussion, No accessory muscle use. Cardio: Normal S1/S2, regular rhythm, no murmurs, no JVD Abdomen: Soft, non-tender, no palpable masses, peristalsis present, no guarding or rebound. Extremities: Symmetrical, no significant deformities, no peripheral edema , non-tender, peripheral pulses presents. R LE covered with soft cast open at toes. able to move toes.cast mildly tinged with what seems to be blood. Skin: No rashes, no lesions, warm to touch. Neuro: No focal neurological deficits. Psych: Cooperative, appropriate mood and effect. Objective Labs 04/02/24 04:50 04/02/24 04:50 Labs: Laboratory Results - last 24 hr 04/02/24 04:50 WBC 11.2 H D RBC 4.04 Hgb 12.8 Hct 36.2 MCV 90 MCH 31.7 MCHC 35.4 RDW Std Deviation 37.2 Plt Count 191 D Neut % (Auto) 83 H Lymph % (Auto) 12 [place] % (Auto) 4 Eos % (Auto) 0 Baso % (Auto) 0 Neut # (Auto) 9.3 H Lymph # (Auto) 1.4 [place] # (Auto) 0.4 Eos # (Auto) 0.0 Baso # (Auto) 0.0 Immature Gran # (Auto) 0.04 H Absolute Nucleated RBC 0.00 Immature Gran % 0 Nucleated RBC % 0 Sodium 138 Potassium 3.9 Chloride 104 Carbon Dioxide 24.3 Anion Gap 10 BUN 18 Creatinine 0.7 Estim Creat Clear Calc 74.1 eGFR > 60 BUN/Creatinine Ratio 26 H Glucose 161 H D Calculated Osmolality 280 Calcium 9.8 Corrected Calcium 9.8 Magnesium 2.1 Total Bilirubin 0.5 AST 18 ALT 26 Alkaline Phosphatase 91 Total Protein 6.9 Albumin 4.5 Globulin 2.4 Albumin/Globulin Ratio 1.9 Quality Measures Quality Measures none Advance care planning discussed with:: patient Assessment & Plan Assessment Current Active Medications: Generic Name Dose Route Start Last Admin Trade Name Freq PRN Reason Stop Dose Admin Acetaminophen 650 mg 04/01/24 10:55 Acetaminophen 325 Mg Tablet PO 04/30/24 16:23 Q6H PRN pain (1-3) and Fever >100.4 Hydrocodone Bitart/Acetaminophen 1 tab 03/31/24 16:24 Hydrocodone/Apap 5/325 Tablet PO 04/05/24 16:23 Q4HR PRN PAIN SCALE 4-6 (Moderate Aspirin 81 mg 04/02/24 10:45 Aspirin Ec 81 Mg Tabec PO 05/02/24 10:44 BID ARIAN Dextrose 25 ml 04/01/24 18:09 Dextrose 50%-Water Inj 50 Ml Syringe IV 05/01/24 18:08 Q15MIN PRN BG 50-70 responsive npo pt Dextrose 50 ml 04/01/24 18:09 Dextrose 50%-Water Inj 50 Ml Syringe IV 05/01/24 18:08 Q15MIN PRN BG <50 OR BG <70 & pt unresponsive Glucagon 1 mg 04/01/24 18:09 Glucagon Inj 1 Mg Vial IM Q15MIN PRN BG <70, and no IV access Insulin Human Lispro 0 unit 04/02/24 07:30 04/02/24 07:49 Insulin Lispro (Admelog) 1 Unit/0.01 Ml Unit SC 05/02/24 07:29 Not Given AC ARIAN Protocol Morphine Sulfate 1 mg 03/31/24 16:24 03/31/24 18:53 Morphine Sulf Inj 10 Mg/Ml Vial IVP 04/05/24 16:23 1 mg Q4H PRN Administration PAIN SCALE 7-10 (Severe Ondansetron HCl 4 mg 03/31/24 16:24 03/31/24 18:53 Ondansetron Inj 2 Mg/Ml Inj 2 Ml IV 04/30/24 16:23 4 mg Q6H PRN Administration NAUSEA OR VOMITING Protocol Sennosides 1 tab 03/31/24 16:24 Senna Tablet PO 04/30/24 16:23 QDAY PRN constipation Protocol Plan 63-year-old female with past medical history of DM2 and hyperlipidemia was admitted to the hospital on 03/31/2024 for acute fracture of distal fibula and displaced fracture of medial malleolus. #Acute fracture of distal fibula #Displaced fracture of medial malleolus #S/p open reduction with internal fixation of fractures ? Patient stated that she rolled her ankle after tripping while walking in [place] and had also been walking on her ankle like this for 5 days before being told that she had a fracture and placed on a soft cast ?ankle x-ray which showed acute fracture of distal fibula and displaced fracture of medial malleolus - Muse perioperative risk of 0.2% risk of myocardial infarction or cardiac arrest intraoperatively or upto 30 days post-op. -RCRI 0 points, 3.9% risk of major cardiac event -Echo showed EF of 60-65%. -She underwent open reduction with internal fixation of fractures by orthopedic surgeon. Plan: ? Aspirin 81 mg BID as per orthopedic surgeon for 2 weeks. -Pending PT and SNF placement ?Cardiology consulted for cardiac clearance, patient cleared ? Orthopedic surgeon consulted orthopedic recommendations #DM2 ? A1c 6.6 ? Glucose 161 today -ISS -hypoglycemic protocol #Hyperlipidemia ? Will restart patient's atorvastatin Disposition: Patient admitted to telemetry s/p open reduction with internal fixation, pending PT and SnF placement. Diet: carb low GI prophylaxis: not indicated DVT prophylaxis: SCDs, aspirin 81 mg BID Code: Full code Case disclosed with Attending Dr. Sheikh and My senior Dr. Muse PGY2. Alexis Cadet Severoadriel Maxwell PGY1 Senior Resident Attestation: The patient is a 63-year-old female with significant past medical history of diabetes mellitus type 2 and hyperlipidemia presented with chief complaint of right ankle pain after tripping over while walking underwent: 1. Open reduction internal fixation of right lateral malleolus with 3 hole distal fibular interlocking screw 2 open reduction internal fixation of medial malleolus with 2 cannulated screw She was started on aspirin 81mg twice daily for DVT prophylaxis. We will continue to manage her pain. The patient will be getting PT evaluation tomorrow, and possible DC to SNF after that. I discussed with and supervised the international travel consultant physician involved in the care of this patient. I personally saw and examined the patient and discussed the assessment and plan with the entire medicine team, including my attending. I agree with the assessment and plan as documented above. David Muse MD PGY2 Internal Medicine
[2024-04-02] MEDS: ASPIRIN EC 81 MG TABEC PO ×2 (12:55→21:41)
[2024-04-02] MEDS: SENNA TABLET 1 TAB PO (12:55)
--- NOTE | 2024-04-02 13:13 | PC.PT ---
04/02/2024 PT recommends patient home with family and walker or least restrictive AD
[2024-04-02] MEDS: HYDROcodone/APAP 5/325 TABLET 1 TAB PO (18:47)
[2024-04-03] VITALS (7 sets, daily range): BP systolic 107–120; BP diastolic 62–72; PULSE 62–72; RESP 16–95; TEMP 36–36.4; O2SAT 94–96
[2024-04-03] MEDS: HYDROcodone/APAP 5/325 TABLET 1 TAB PO ×2 (04:38→14:29)
[2024-04-03] MEDS: ACETAMINOPHEN 325 MG TABLET 650 MG PO (08:28)
[2024-04-03] MEDS: SENNA TABLET 1 TAB PO (08:29)
[2024-04-03] MEDS: ASPIRIN EC 81 MG TABEC PO ×2 (08:29→21:16)
--- NOTE | 2024-04-03 08:38 | PC.NURSE ---
Spoke with Dr Templeton regarding weight bearing status, pt will be Non-Weight Bearing right foot for at least 6 weeks. He will be in tomorrow to change dressing.
--- NOTE | 2024-04-03 10:05 | PC.NURSE ---
discharge orders in, patient requesting [facility]. geriatric social work professor to follow up
--- NOTE | 2024-04-03 11:39 | ESDS_ITS ---
<Statement entered by Chiquita Sheikh MD - 04/08/24 15:04> I reviewed above note and agree with findings and plans. I have also personally examined the patient with medicine team and went over assessment and plan with medical team including internet marketing specialist and resident physician. Planned Discharge Date 04/03/24 DS: Providers Provider Date of admission: 03/31/24 16:25 Primary care physician: Physician No Primary/Family Admitting Provider: Chiquita Sheikh MD Attending Provider on Admission: Chiquita Sheikh MD Consults: 03/31/24 15:02 Consult to Cardiology Stat Comment: Cardiac clearance for surgery Consulting Provider: Gary Hancock 03/31/24 15:07 Consult to Orthopedic Stat Comment: Bimalleolar fracture right ankle Consulting Provider: Hua Bartholomew 04/01/24 14:28 Referral Physical Therapy Routine Comment: Gait Training Physician Instructions: Attending Provider on DC: Chiquita Sheikh MD Discharging Provider: Chiquita Sheikh MD DS: Diagnosis Problem List Completed Was Problem List Reviewed/Reconciled?: Yes Hospital Course Hospital Course Hospital course: 63-year-old female with past medical history of DM2 and hyperlipidemia was admitted to the hospital on 03/31/2024 for acute fracture of distal fibula and displaced fracture of medial malleolus. Initially came in to the ED with complaints of fractured right lower leg after tripping over while walking and rolling her ankle in [place]. She had a chest x-ray done in [place] and was told she had a fracture therefore she cannot wait until she came back to the [place] to get medical attention.Initially patient came in mildly hypertensive and afebrile. Initial labs for unremarkable with stable hemoglobin at 14.7. Initial imaging included ankle x-ray which showed acute fracture of distal fibula and displaced fracture of medial malleolus, and chest x-ray was unremarkable. EKG shows sinus rhythm. Patient was cleared by cardiology and on 04/01/2024 orthopedic surgeon took patient to the OR and had an open reduction with internal fixation of her fractures. Patient tolerated procedure well and she remained stable throughout her hospital stay. Physical therapy recommend the patient to go home for now until patient was able to participate in outpatient physical therapy. At this time patient stable enough to be discharged to [facility] facility. Discharge plan: Please follow-up with your PCP within 1 week of discharge. Please follow-up with orthopedics Dr. Templeton in 2 weeks You have been started on Aspirin 81 mg BID for 13 more days. We have started hydrocodone-acetaminophen 5-325mg 1 tablet twice daily as needed for pain -We have started you on Senna 1 tablet daily as needed for constipation. We have discontinued your: -Ibuprofen 800mg Recommended to return back to emergency department if your symptoms persist or does not improve. Problem list: #Acute fracture of distal fibula #Displaced fracture of medial malleolus #S/p open reduction with internal fixation of fractures #DM2 #Hyperlipidemia Case disclosed with Attending Dr. Sheikh . Alexis Maxwell PGY1 Status at Discharge Overall status at discharge: patient is progressing back to baseline Time Spent with Patient Time attestation: Total time spent providing and/or coordinating discharge services:> 35 min Home Health Home Health Referral Orders: 04/03/24 10:05 Home Health Referral Routine Reason For Exam: PT Home-Bound The patient must either because of illness or injury, need the aid of supportive devices such as crutches, canes, wheelchairs, and walkers; the use of special transportation; or the assistance of another person in order to leave their place of residence; OR have a condition such that leaving his or her home is medically contraindicated. In addition, the patient also meets the following criteria: patient is normally unable to leave the home and leaving home requires considerable taxing effort. Addendum to Home Health Certification Practitioner's Certification: I certify that the patient has been under my care in the hospital and the care of attending physician (see below). We had a [id number] encounter on (see date below). My clinical findings indicate that the patient is home bound per the above criteria and the Home Health Services noted in these orders are medically necessary. The primary reason for the [id number] encounter is related to the fact that the patient requires home health services. Date Certifying [id number] Physician Encounter: 03/31/23 Physician's Name who will Assume Oversight for HH Services: Physician No Primary/Family BAILING MACHINE OPERATOR - Community Resources: No PT to Evaluate: Yes PT to evaluate and provide a treatmnet plan to increase patient's mobility and strength. Wound Care: No IV Therapy: No RN Safety Evaluation: Yes RN to evaluate and create a plan of care that will produce positive outcomes. Palliative Treatment: No Palliative treatment and evaluate the need for hospice. Home Health Aide - Personal Care: No Home Health Aide to assist with any ADL's. Exam Vital Signs Temp Pulse Resp BP Pulse Ox O2 Del Method O2 Flow Rate 97.5 F 67 18 110/63 95 Room Air 2 04/03/24 08:00 04/03/24 08:24 04/03/24 08:24 04/03/24 08:00 04/03/24 08:00 04/03/24 08:00 04/01/24 20:00 Narrative Exam General: A/O x3, no acute distress, well-nourished, well-developed Eyes: PERRL, EOMI. Anicteric, vision grossly intact. Ears: No ear pain, no ear discharge, Hearing grossly intact. Nose: No nasal discharge. Mouth/Throat: Dry mucous membranes, no redness, no lesions. Neck: Neck supple, non-tender, no cervical lymphadenopathy. Lungs: Clear SACHIN to auscultation and percussion, No accessory muscle use. Cardio: Normal S1/S2, regular rhythm, no murmurs, no JVD Abdomen: Soft, non-tender, no palpable masses, peristalsis present, no guarding or rebound. Extremities: Symmetrical, no significant deformities, no peripheral edema , non-tender, peripheral pulses presents. R LE covered with soft cast open at toes. able to move toes.cast mildly tinged with what seems to be blood. Skin: No rashes, no lesions, warm to touch. Neuro: No focal neurological deficits. Psych: Cooperative, appropriate mood and effect. Discharge Plan Plan Patient Disposition: HOME (Self Care) Care Plan Goals: Please follow-up with your PCP within 1 week of discharge. Please follow-up with orthopedics Dr. Templeton in 2 weeks You have been started on Aspirin 81 mg BID for 13 more days. We have started hydrocodone-acetaminophen 5-325mg 1 tablet twice daily as needed for pain -We have started you on Senna 1 tablet daily as needed for constipation. We have discontinued your: -Ibuprofen 800mg Recommended to return back to emergency department if your symptoms persist or does not improve. Prescriptions/Referrals Prescriptions/Med Rec: New aspirin [Ecotrin Low Strength] 81 mg Tablet,Delayed Release (Dr/Ec) 81 mg PO BID 14 Days Qty: 28 0RF sennosides [Senna Lax] 8.6 mg Tablet 4.3 mg PO QDAY PRN (Reason: constipation) Qty: 14 0RF hydrocodone-acetaminophen 5-325 mg tablet 1 tab PO BID MDD 10mg PRN (Reason: pain) Qty: 7 0RF Continued metformin 500 mg Tablet 500 mg PO QDAY atorvastatin 10 mg Tablet 10 mg PO QDAY diclofenac sodium 50 mg Tablet,Delayed Release (Dr/Ec) 50 mg PO BID Discontinued ibuprofen 800 mg tablet 800 mg PO QID PRN (Reason: fever or pain) Qty: 30 0RF Referrals: No Primary/Family,Physician [Primary Care Provider] - Patient/Caregiver Discharge Instructions Discharge Activity: as per physical therapy Other Discharge Activity Instructions:: Please follow-up with your PCP within 1 week of discharge. Please follow-up with orthopedics Dr. Templeton in 2 weeks You have been started on Aspirin 81 mg BID for 13 more days. We have started hydrocodone-acetaminophen 5-325mg 1 tablet twice daily as needed for pain -We have started you on Senna 1 tablet daily as needed for constipation. We have discontinued your: -Ibuprofen 800mg Recommended to return back to emergency department if your symptoms persist or does not improve. Education Materials: Ankle Fracture ORIF Print Language: Barbadian Stand Alone Forms: Joann Award Info., Patient Portal Info Letter Discharge Order Discharge Orders: Discharge (Routine); Ordered 04/03/24 Ordered By: Chely Soler Quality Discharge Quality Measures VTE prophylaxis
--- NOTE | 2024-04-03 11:42 | PC.SS ---
Addendum entered by Joanna Espinoza 04/03/24 14:37: SS informed patient accepted to [facility] and auth. is pending. PASRR completed. RN Devika informed. Addendum entered by Joanna sEpinoza 04/03/24 12:12: SS spoke to [facility], she stated patient will be needing auth. and will be pending for 04/04/24. Original Note: SS connected with patient at bedside to confirm discharge plan. Patient requesting SNF at this time, preferred [facility]. SS awaiting SNF [facility] confirmation of acceptance.
[2024-04-04] VITALS: BP 121/71; PULSE 71; RESP 16; TEMP 36.2; O2SAT 97
[2024-04-04 04:00] VITALS: BP 111/72; PULSE 78; RESP 16; TEMP 36.2; O2SAT 95
[2024-04-04] MEDS: HYDROcodone/APAP 5/325 TABLET 1 TAB PO (04:57)
[2024-04-04 08:00] VITALS: BP 131/76; PULSE 76; RESP 19; TEMP 35.9; O2SAT 95
[2024-04-04 08:28] VITALS: BMI 33.8
[2024-04-04] MEDS: ASPIRIN EC 81 MG TABEC PO ×2 (08:36→21:49)
[2024-04-04 12:00] VITALS: BP 123/67; PULSE 72; RESP 18; TEMP 36; O2SAT 95
--- NOTE | 2024-04-04 12:07 | ESDS_ITS ---
<Statement entered by Chiquita Sheikh MD - 04/10/24 16:26> I reviewed above note and agree with findings and plans. I have also personally examined the patient with medicine team and went over assessment and plan with medical team including chemistry intern and resident physician. Planned Discharge Date 04/04/24 DS: Providers Provider Date of admission: 03/31/24 16:25 Primary care physician: Physician No Primary/Family Admitting Provider: Chiquita Sheikh MD Attending Provider on Admission: Chiquita Sheikh MD Consults: 03/31/24 15:02 Consult to Cardiology Stat Comment: Cardiac clearance for surgery Consulting Provider: Gary Hancock 03/31/24 15:07 Consult to Orthopedic Stat Comment: Bimalleolar fracture right ankle Consulting Provider: Hua Bartholomew 04/01/24 14:28 Referral Physical Therapy Routine Comment: Gait Training Physician Instructions: Attending Provider on DC: Chiquita Sheikh MD Discharging Provider: Chiquita Sheikh MD DS: Diagnosis Problem List Completed Was Problem List Reviewed/Reconciled?: Yes Hospital Course Hospital Course Hospital course: 63-year-old female with past medical history of DM2 and hyperlipidemia was admitted to the hospital on 03/31/2024 for acute fracture of distal fibula and displaced fracture of medial malleolus. Initially came in to the ED with complaints of fractured right lower leg after tripping over while walking and rolling her ankle in [place]. She had a chest x-ray done in [place] and was told she had a fracture therefore she cannot wait until she came back to the [place] to get medical attention.Initially patient came in mildly hypertensive and afebrile. Initial labs for unremarkable with stable hemoglobin at 14.7. Initial imaging included ankle x-ray which showed acute fracture of distal fibula and displaced fracture of medial malleolus, and chest x-ray was unremarkable. EKG shows sinus rhythm. Patient was cleared by cardiology and on 04/01/2024 orthopedic surgeon took patient to the OR and had an open reduction with internal fixation of her fractures. Patient tolerated procedure well and she remained stable throughout her hospital stay. Physical therapy recommend the patient to go home for now until patient was able to participate in outpatient physical therapy. At this time patient stable enough to be [facility]. 04/04/2024: Patient's discharge was delayed due to needing approval of insurance for [facility] facility and [facility] facility placement. Patient was stable today with no complaints at this time. Discharge plan: Please follow-up with your PCP within 1 week of discharge. Please follow-up with orthopedics Dr. Templeton in 2 weeks You have been started on Aspirin 81 mg BID for 13 more days. We have started hydrocodone-acetaminophen 5-325mg 1 tablet twice daily as needed for pain -We have started you on Senna 1 tablet daily as needed for constipation. We have discontinued your: -Ibuprofen 800mg Recommended to return back to emergency department if your symptoms persist or does not improve. Problem list: #Acute fracture of distal fibula #Displaced fracture of medial malleolus #S/p open reduction with internal fixation of fractures #DM2 #Hyperlipidemia Case disclosed with Attending Dr. Sheikh and my senior Dr. Muse PGY2 Alexis Maxwell PGY1 Senior Resident Attestation: I discussed with and supervised the chemistry intern physician involved in the care of this patient. I personally saw and examined the patient and discussed the assessment and plan with the entire medicine team, including my attending. I agree with the discharge plan as documented above. David Muse MD PGY2 Internal Medicine Status at Discharge Overall status at discharge: patient is progressing back to baseline Time Spent with Patient Time attestation: Total time spent providing and/or coordinating discharge services: >35 min Home Health Home Health Referral Orders: 04/03/24 10:05 Home Health Referral Routine Reason For Exam: PT Home-Bound The patient must either because of illness or injury, need the aid of supportive devices such as crutches, canes, wheelchairs, and walkers; the use of special transportation; or the assistance of another person in order to leave their place of residence; OR have a condition such that leaving his or her home is medically contraindicated. In addition, the patient also meets the following criteria: patient is normally unable to leave the home and leaving home requires considerable taxing effort. Addendum to Home Health Certification Practitioner's Certification: I certify that the patient has been under my care in the hospital and the care of attending physician (see below). We had a [id number] encounter on (see date below). My clinical findings indicate that the patient is home bound per the above criteria and the Home Health Services noted in these orders are medically necessary. The primary reason for the [id number] encounter is related to the fact that the patient requires home health servi sarita. Date Certifying Upas-de-Rbdc Physician Encounter: 03/31/23 Physician's Name who will Assume Oversight for HH Services: Physician No Primary/Family SENIOR TECHNICAL WRITER - Community Resources: No PT to Evaluate: Yes PT to evaluate and provide a treatmnet plan to increase patient's mobility and strength. Wound Care: No IV Therapy: No RN Safety Evaluation: Yes RN to evaluate and create a plan of care that will produce positive outcomes. Palliative Treatment: No Palliative treatment and evaluate the need for hospice. Home Health Aide - Personal Care: No Home Health Aide to assist with any ADL's. Exam Vital Signs Temp Pulse Resp BP Pulse Ox O2 Del Method O2 Flow Rate 96.7 F L 76 19 131/76 H 95 Room Air 2 04/04/24 08:00 04/04/24 08:00 04/04/24 08:00 04/04/24 08:00 04/04/24 08:00 04/04/24 08:00 04/01/24 20:00 Narrative Exam General: A/O x3, no acute distress, well-nourished, well-developed Eyes: PERRL, EOMI. Anicteric, vision grossly intact. Ears: No ear pain, no ear discharge, Hearing grossly intact. Nose: No nasal discharge. Mouth/Throat: Dry mucous membranes, no redness, no lesions. Neck: Neck supple, non-tender, no cervical lymphadenopathy. Lungs: Clear SACHIN to auscultation and percussion, No accessory muscle use. Cardio: Normal S1/S2, regular rhythm, no murmurs, no JVD Abdomen: Soft, non-tender, no palpable masses, peristalsis present, no guarding or rebound. Extremities: Symmetrical, no significant deformities, no peripheral edema , non-tender, peripheral pulses presents. R LE covered with soft cast open at toes. able to move toes.cast still mildly tinged with what seems to be old blood. Skin: No rashes, no lesions, warm to touch. Neuro: No focal neurological deficits. Psych: Cooperative, appropriate mood and effect. Discharge Plan Plan Patient Disposition: HOME (Self Care) Care Plan Goals: Please follow-up with your PCP within 1 week of discharge. Please follow-up with orthopedics Dr. Templeton in 2 weeks You have been started on Aspirin 81 mg BID for 13 more days. We have started hydrocodone-acetaminophen 5-325mg 1 tablet twice daily as needed for pain -We have started you on Senna 1 tablet daily as needed for constipation. We have discontinued your: -Ibuprofen 800mg Recommended to return back to emergency department if your symptoms persist or does not improve. Prescriptions/Referrals Prescriptions/Med Rec: New aspirin [Ecotrin Low Strength] 81 mg Tablet,Delayed Release (Dr/Ec) 81 mg PO BID 14 Days Qty: 28 0RF sennosides [Senna Lax] 8.6 mg Tablet 4.3 mg PO QDAY PRN (Reason: constipation) Qty: 14 0RF hydrocodone-acetaminophen 5-325 mg tablet 1 tab PO BID MDD 10mg PRN (Reason: pain) Qty: 7 0RF Continued metformin 500 mg Tablet 500 mg PO QDAY atorvastatin 10 mg Tablet 10 mg PO QDAY diclofenac sodium 50 mg Tablet,Delayed Release (Dr/Ec) 50 mg PO BID Discontinued ibuprofen 800 mg tablet 800 mg PO QID PRN (Reason: fever or pain) Qty: 30 0RF Referrals: No Primary/Family,Physician [Primary Care Provider] - Patient/Caregiver Discharge Instructions Discharge Activity: as per physical therapy Other Discharge Activity Instructions:: Please follow-up with your PCP within 1 week of discharge. Please follow-up with orthopedics Dr. Templeton in 2 weeks You have been started on Aspirin 81 mg BID for 13 more days. We have started hydrocodone-acetaminophen 5-325mg 1 tablet twice daily as needed for pain -We have started you on Senna 1 tablet daily as needed for constipation. We have discontinued your: -Ibuprofen 800mg Recommended to return back to emergency department if your symptoms persist or does not improve. Education Materials: Ankle Fracture ORIF Print Language: Syriac Stand Alone Forms: Joann Award Info., Patient Portal Info Letter Discharge Order Discharge Orders: Discharge (Routine); Ordered 04/03/24 Ordered By: Chely Soler Quality Discharge Quality Measures VTE prophylaxis
[2024-04-04 16:00] VITALS: BP 136/65; PULSE 74; RESP 18; TEMP 36.1; O2SAT 95
--- NOTE | 2024-04-04 16:09 | PC.SS ---
[facility] re-submitted SNF as requested.
[2024-04-04 20:00] VITALS: BP 129/79; PULSE 81; RESP 16; TEMP 36.1; O2SAT 96
[2024-04-05] VITALS: BP 135/75; PULSE 67; RESP 16; TEMP 36.2; O2SAT 95
[2024-04-05 04:00] VITALS: BP 117/70; PULSE 77; RESP 17; TEMP 36.1; O2SAT 96
[2024-04-05 08:00] VITALS: BP 117/76; PULSE 84; RESP 18; TEMP 36.3; O2SAT 96
[2024-04-05] MEDS: ASPIRIN EC 81 MG TABEC PO ×2 (08:24→20:43)
[2024-04-05] MEDS: HYDROcodone/APAP 5/325 TABLET 1 TAB PO ×2 (08:24→22:33)
--- NOTE | 2024-04-05 10:19 | PC.NURSE ---
Discharge orders in for patient. Waiting for insurance approval for sniff placement. Will continue to monitor patient.
--- NOTE | 2024-04-05 11:38 | ESDS_ITS ---
Planned Discharge Date 04/05/24 DS: Providers Provider Date of admission: 03/31/24 16:25 Primary care physician: Physician No Primary/Family Admitting Provider: Chiquita Sheikh MD Attending Provider on Admission: Chiquita Sheikh MD Consults: 03/31/24 15:02 Consult to Cardiology Stat Comment: Cardiac clearance for surgery Consulting Provider: Gary Hancock 03/31/24 15:07 Consult to Orthopedic Stat Comment: Bimalleolar fracture right ankle Consulting Provider: Hua Bartholomew 04/01/24 14:28 Referral Physical Therapy Routine Comment: Gait Training Physician Instructions: Attending Provider on DC: Chiquita Sheikh MD Discharging Provider: Chiquita Sheikh MD DS: Diagnosis Problem List Completed Was Problem List Reviewed/Reconciled?: Yes Hospital Course Hospital Course Hospital course: 63-year-old female with past medical history of DM2 and hyperlipidemia was admitted to the hospital on 03/31/2024 for acute fracture of distal fibula and displaced fracture of medial malleolus. Initially came in to the ED with complaints of fractured right lower leg after tripping over while walking and rolling her ankle in [place]. She had a chest x-ray done in [place] and was told she had a fracture therefore she cannot wait until she came [place] the [place] to get medical attention.Initially patient came in mildly hypertensive and afebrile. Initial labs for unremarkable with stable hemoglobin at 14.7. Initial imaging included ankle x-ray which showed acute fracture of distal fibula and displaced fracture of medial malleolus, and chest x-ray was un remarkable. EKG shows sinus rhythm. Patient was cleared by cardiology and on 04/01/2024 orthopedic surgeon took patient to the OR and had an open reduction with internal fixation of her fractures. Patient tolerated procedure well and she remained stable throughout her hospital stay. Physical therapy recommend the patient to go home for now until patient was able to participate in outpatient physical therapy. At this time patient stable [facility] 04/04/2024: Patient's discharge was delayed due to needing approval of insurance for [facility] and [facility]. Patient was stable today with no complaints at this time. 04/05/2024: Patient's discharge was 1 mg and delayed due to SNF placement and insurance authorization. At this time patient did not have any complaints and she was stable. Spoke with patient and she was okay to [facility] a [facility] facility, but if her insurance did not approve that this she would go home with home health. Discharge plan: Please follow-up with your PCP within 1 week of discharge. Please follow-up with orthopedics Dr. Templeton in 2 weeks You have been started on Aspirin 81 mg BID for 10 more days. We have started hydrocodone-acetaminophen 5-325mg 1 tablet twice daily as needed for pain -We have started you on Senna 1 tablet daily as needed for constipation. We have discontinued your: -Ibuprofen 800mg Recommended to return back to emergency department if your symptoms persist or does not improve. Problem list: #Acute fracture of distal fibula #Displaced fracture of medial malleolus #S/p open reduction with internal fixation of fractures #DM2 #Hyperlipidemia Case disclosed with Attending Dr. Sheikh and my senior Dr. Muse PGY2 Alexis Maxwell PGY1 Senior Resident Attestation: I discussed with and supervised the dietary internship physician involved in the care of this patient. I personally saw and examined the patient and discussed the assessment and plan with the entire medicine team, including my attending. I agree with the discharge plan as documented above. David Muse MD PGY2 Internal Medicine Status at Discharge Overall status at discharge: patient is progressing back to baseline Time Spent with Patient Time attestation: Total time spent providing and/or coordinating discharge services: >35 min Exam Vital Signs Temp Pulse Resp BP Pulse Ox O2 Del Method O2 Flow Rate 97.4 F 84 18 117/76 96 Room Air 2 04/05/24 08:00 04/05/24 08:00 04/05/24 08:00 04/05/24 08:00 04/05/24 08:00 04/05/24 08:00 04/05/24 08:00 Narrative Exam General: A/O x3, no acute distress, well-nourished, well-developed Eyes: PERRL, EOMI. Anicteric, vision grossly intact. Ears: No ear pain, no ear discharge, Hearing grossly intact. Nose: No nasal discharge. Mouth/Throat: Dry mucous membranes, no redness, no lesions. Neck: Neck supple, non-tender, no cervical lymphadenopathy. Lungs: Clear SACHIN to auscultation and percussion, No accessory muscle use. Cardio: Normal S1/S2, regular rhythm, no murmurs, no JVD Abdomen: Soft, non-tender, no palpable masses, peristalsis present, no guarding or rebound. Extremities: Symmetrical, no significant deformities, no peripheral edema , non-tender, peripheral pulses presents. R LE covered with soft cast open at toes. able to move toes. cast mildly tinged with what seems to be old blood. Skin: No rashes, no lesions, warm to touch. Neuro: No focal neurological deficits. Psych: Cooperative, appropriate mood and effect. Discharge Plan Plan Patient Disposition: HOME (Self Care) Care Plan Goals: Please follow-up with your PCP within 1 week of discharge. Please follow-up with orthopedics Dr. Templeton in 2 weeks You have been started on Aspirin 81 mg BID for 10 more days. We have started hydrocodone-acetaminophen 5-325mg 1 tablet twice daily as needed for pain -We have started you on Senna 1 tablet daily as needed for constipation. We have discontinued your: -Ibuprofen 800mg Recommended to return back to emergency department if your symptoms persist or does not improve. Prescriptions/Referrals Prescriptions/Med Rec: New aspirin [Ecotrin Low Strength] 81 mg Tablet,Delayed Release (Dr/Ec) 81 mg PO BID 14 Days Qty: 28 0RF sennosides [Senna Lax] 8.6 mg Tablet 4.3 mg PO QDAY PRN (Reason: constipation) Qty: 14 0RF hydrocodone-acetaminophen 5-325 mg tablet 1 tab PO BID MDD 10mg PRN (Reason: pain) Qty: 7 0RF Continued metformin 500 mg Tablet 500 mg PO QDAY atorvastatin 10 mg Tablet 10 mg PO QDAY diclofenac sodium 50 mg Tablet,Delayed Release (Dr/Ec) 50 mg PO BID Discontinued ibuprofen 800 mg tablet 800 mg PO QID PRN (Reason: fever or pain) Qty: 30 0RF Referrals: No Primary/Family,Physician [Primary Care Provider] - Patient/Caregiver Discharge Instructions Discharge Activity: as per physical therapy Other Discharge Activity Instructions:: Please follow-up with your PCP within 1 week of discharge. Please follow-up with orthopedics Dr. Templeton in 2 weeks You have been started on Aspirin 81 mg BID for 10 more days. We have started hydrocodone-acetaminophen 5-325mg 1 tablet twice daily as needed for pain -We have started you on Senna 1 tablet daily as needed for constipation. We have discontinued your: -Ibuprofen 800mg Recommended to return back to emergency department if your symptoms persist or does not improve. Education Materials: Treating Ankle Fractures, Ankle Fracture ORIF, Understanding an Ankle Fracture Print Language: Kazakh Stand Alone Forms: Joann Award Info., Patient Portal Info Letter Discharge Order Discharge Orders: Discharge (Routine); Ordered 04/05/24 Ordered By: David Muse Quality Discharge Quality Measures VTE prophylaxis
[2024-04-05 12:00] VITALS: BP 129/82; PULSE 92; RESP 19; TEMP 36.4; O2SAT 97
--- NOTE | 2024-04-05 14:26 | PC.SS ---
Follow up note: Patient pending d/c to [facility]. Pending auth. Spoke to [facility] and they need clinicals
[2024-04-05 16:00] VITALS: BP 118/83; PULSE 86; RESP 18; TEMP 36.2; O2SAT 97
[2024-04-05 20:00] VITALS: BP 98/63; PULSE 77; RESP 17; TEMP 36.2; O2SAT 94
[2024-04-05] MEDS: SENNA TABLET 1 TAB PO (21:07)
[2024-04-06] VITALS: BP 116/70; PULSE 85; RESP 17; TEMP 36.1; O2SAT 98
[2024-04-06 04:00] VITALS: BP 112/66; PULSE 68; RESP 16; TEMP 36.1; O2SAT 96
[2024-04-06 08:00] VITALS: BP 128/79; PULSE 73; RESP 18; TEMP 36.1; O2SAT 96
[2024-04-06] MEDS: ASPIRIN EC 81 MG TABEC PO (09:01)
[2024-04-06] MEDS: HYDROcodone/APAP 5/325 TABLET 1 TAB PO (11:24)
[2024-04-06 11:40] VITALS: BP 153/80; PULSE 94; RESP 16; TEMP 36.1; O2SAT 96
--- NOTE | 2024-04-06 20:19 | ESDS_ITS ---
Planned Discharge Date 04/06/24 DS: Providers Provider Date of admission: 03/31/24 16:25 Primary care physician: Physician No Primary/Family Admitting Provider: Chiquita Sheikh MD Attending Provider on Admission: Eleazar Kelsey MD Consults: 03/31/24 15:02 Consult to Cardiology Stat Comment: Cardiac clearance for surgery Consulting Provider: Gary Hancock 03/31/24 15:07 Consult to Orthopedic Stat Comment: Bimalleolar fracture right ankle Consulting Provider: Hua Bartholomew 04/01/24 14:28 Referral Physical Therapy Routine Comment: Gait Training Physician Instructions: Attending Provider on DC: David Muse MD Discharging Provider: David Muse MD DS: Diagnosis Problem List Completed Was Problem List Reviewed/Reconciled?: Yes Hospital Course Hospital Course Hospital course: 63-year-old female with past medical history of DM2 and hyperlipidemia was admitted to the hospital on 03/31/2024 for acute fracture of distal fibula and displaced fracture of medial malleolus. Initially came in to the ED with complaints of fractured right lower leg after tripping over while walking and rolling her ankle in [place]. She had a chest x-ray done in [place] and was told she had a fracture therefore she cannot wait until she came [place] the [place] to get medical attention.Initially patient came in mildly hypertensive and afebrile. Initial labs for unremarkable with stable hemoglobin at 14.7. Initial imaging included ankle x-ray which showed acute fracture of distal fibula and displaced fracture of medial malleolus, and chest x-ray was u nremarkable. EKG shows sinus rhythm. Patient was cleared by cardiology and on 04/01/2024 orthopedic surgeon took patient to the OR and had an open reduction with internal fixation of her fractures. Patient tolerated procedure well and she remained stable throughout her hospital stay. Physical therapy recommend the patient to go home for now until patient was able to participate in outpatient physical therapy. At this time patient stable enough to be discharged to [facility] facility. 04/04/2024: Patient's discharge was delayed due to needing approval of insurance for [facility] facility and [facility] facility placement. Patient was stable today with no complaints at this time. 04/05/2024: Patient's discharge was 1 mg and delayed due to SNF placement and insurance authorization. At this time patient did not have any complaints and she was stable. Spoke with patient and she was okay to go to a [facility] facility, but if her insurance did not approve that this she would go home with home health. Discharge plan: Please follow-up with your PCP within 1 week of discharge. Please follow-up with orthopedics Dr. Templeton in 2 weeks You have been started on Aspirin 81 mg BID for 10 more days. We have started hydrocodone-acetaminophen 5-325mg 1 tablet twice daily as needed for pain -We have started you on Senna 1 tablet daily as needed for constipation. We have discontinued your: -Ibuprofen 800mg Recommended to return back to emergency department if your symptoms persist or does not improve. Problem list: #Acute fracture of distal fibula #Displaced fracture of medial malleolus #S/p open reduction with internal fixation of fractures #DM2 #Hyperlipidemia Case disclosed with Attending MD David Gimenez MD PGY2 Internal Medicine Time Spent with Patient Time attestation: Total time spent providing and/or coordinating discharge services: >35 min Exam Vital Signs Temp Pulse Resp BP Pulse Ox O2 Del Method O2 Flow Rate 97.0 F 94 16 153/80 H 96 Room Air 2 04/06/24 11:40 04/06/24 11:40 04/06/24 11:40 04/06/24 11:40 04/06/24 11:40 04/06/24 11:40 04/05/24 16:00 Narrative Exam General: A/O x3, no acute distress, well-nourished, well-developed Eyes: PERRL, EOMI. Anicteric, vision grossly intact. Ears: No ear pain, no ear discharge, Hearing grossly intact. Nose: No nasal discharge. Mouth/Throat: Dry mucous membranes, no redness, no lesions. Neck: Neck supple, non-tender, no cervical lymphadenopathy. Lungs: Clear SACHIN to auscultation and percussion, No accessory muscle use. Cardio: Normal S1/S2, regular rhythm, no murmurs, no JVD Abdomen: Soft, non-tender, no palpable masses, peristalsis present, no guarding or rebound. Extremities: Symmetrical, no significant deformities, no peripheral edema , non-tender, peripheral pulses presents. R LE covered with soft cast open at toes. able to move toes. cast mildly tinged with what seems to be old blood. Skin: No rashes, no lesions, warm to touch. Neuro: No focal neurological deficits. Psych: Cooperative, appropriate mood and effect. Discharge Plan Plan Patient Disposition: HOME (Self Care) Care Plan Goals: Please follow-up with your PCP within 1 week of discharge. Please follow-up with orthopedics Dr. Templeton in 2 weeks You have been started on Aspirin 81 mg BID for 10 more days. We have started hydrocodone-acetaminophen 5-325mg 1 tablet twice daily as needed for pain -We have started you on Senna 1 tablet daily as needed for constipation. We have discontinued your: -Ibuprofen 800mg Recommended to return back to emergency department if your symptoms persist or does not improve. Prescriptions/Referrals Prescriptions/Med Rec: New aspirin [Ecotrin Low Strength] 81 mg Tablet,Delayed Release (Dr/Ec) 81 mg PO BID 14 Days Qty: 28 0RF sennosides [Senna Lax] 8.6 mg Tablet 4.3 mg PO QDAY PRN (Reason: constipation) Qty: 14 0RF hydrocodone-acetaminophen 5-325 mg tablet 1 tab PO BID MDD 10mg PRN (Reason: pain) Qty: 7 0RF Continued metformin 500 mg Tablet 500 mg PO QDAY atorvastatin 10 mg Tablet 10 mg PO QDAY diclofenac sodium 50 mg Tablet,Delayed Release (Dr/Ec) 50 mg PO BID Discontinued ibuprofen 800 mg tablet 800 mg PO QID PRN (Reason: fever or pain) Qty: 30 0RF Referrals: No Primary/Family,Physician [Primary Care Provider] - Patient/Caregiver Discharge Instructions Discharge Activity: as per physical therapy Other Discharge Activity Instructions:: Please follow-up with your PCP within 1 week of discharge. Please follow-up with orthopedics Dr. Templeton in 2 weeks You have been started on Aspirin 81 mg BID for 10 more days. We have started hydrocodone-acetaminophen 5-325mg 1 tablet twice daily as needed for pain -We have started you on Senna 1 tablet daily as needed for constipation. We have discontinued your: -Ibuprofen 800mg Recommended to return back to emergency department if your symptoms persist or does not improve. Education Materials: Treating Ankle Fractures, Ankle Fracture ORIF, Understanding an Ankle Fracture Print Language: Latvian Stand Alone Forms: Joann Award Info., Patient Portal Info Letter Discharge Order Discharge Orders: Discharge (Routine); Ordered 04/05/24 Ordered By: David Muse Quality Discharge Quality Measures VTE prophylaxis Attestestation MD Attestation I discussed with and supervised the resident physician who took care of this patient. I agree with the assessment and discharge plan plan as above. Contact PCP or return to the emergency room for recurrent symptoms
== END 2024-04-06 12:50 | disposition home or self-care (01) | DRG 494 ==
LOC: SERX 16:00 → SERHOLD 16:39 → S3SX 19:34
PROVIDERS: Nurse Practitioner Family; Orthopaedic Surgery; Admitting Provider Internal Medicine; Emergency Provider Emergency Medicine; Visit Provider Internal Medicine
PROC: 0QSJ04Z Reposition Right Fibula with Internal Fixation Device, Open Approach (ICD-10-PCS; principal; 2024-04-01 10:15)
DX: S82.841A Displaced bimalleolar fracture of right lower leg, initial encounter for closed fracture (principal); E11.9 Type 2 diabetes mellitus without complications; Y93.01 Activity, walking, marching and hiking; W01.0XXA Fall on same level from slipping, tripping and stumbling without subsequent striking against object, initial encounter; S82.831A Other fracture of upper and lower end of right fibula, initial encounter for closed fracture; I10 Essential (primary) hypertension; E78.5 Hyperlipidemia, unspecified
CPT/HCPCS: 36415; 71045; 73610; 76000; 80053; 80061; 80069; 81001; 83036; 83735; 83880; 84100; 84484; 85025; 85610; 85730; 93306; 96374; 96375; 97161; 99285; A4217; A4649; C1713; C1769; J0689; J0690; J1100; J1815; J2250; J2270; J2405; J2704; J2765; J2795; J3010; P9045; A9270

== ENCOUNTER → 2024-05-16 | Outpatient (CLI) | payer MEDICARE, MEDICAID, SELFPAY ==
--- NOTE | 2024-05-16 10:50 | XR_ITS ---
EXAMINATION: Ankle, right 3 views . Technique: Ankle AP, oblique, lateral 3 views Date and time of exam: May 16, 2024 1206 hours Comparison April 01, 2024 INDICATIONS: Right ankle surgery April 01, 2024 postop FINDINGS: Partial healing fractures distal fibular shaft and medial malleolus compared with April 01, 2024 Anatomic alignment IMPRESSION: Partial healing fractures distal fibular shaft and medial malleolus with anatomic alignment
== END | disposition home or self-care (01) ==
LOC: CDIM 10:29
PROVIDERS: PCP Nurse Practitioner Family; Referring Provider Orthopaedic Surgery; Visit Provider Orthopaedic Surgery
DX: S82.401A Unspecified fracture of shaft of right fibula, initial encounter for closed fracture (principal); X58.XXXA Exposure to other specified factors, initial encounter
CPT/HCPCS: 73610

== ENCOUNTER → 2024-08-09 | Outpatient (CLI) | payer MEDICARE, MEDICAID, SELFPAY ==
--- NOTE | 2024-08-09 | XR_ITS ---
EXAMINATION: Ankle, right 3 views . Technique: Ankle AP, oblique, lateral 3 views Date and time of exam: August 09, 2024 0819 hours INDICATIONS: Ankle fracture February 2024 postop reduction internal fixation FINDINGS: Healed fractures distal fibular shaft and medial malleolus Satisfactory alignment Mild to moderate narrowing tibiotalar joint Prominent plantar posterior bony calcaneal spurs IMPRESSION: Healed fractures distal fibular shaft and medial malleolus
--- NOTE | 2024-08-09 | XR_ITS ---
Examination: AP lateral left knee 2 views TECHNIQUE: Standing AP lateral left knee 2 views August 09, 2024 0824 hours INDICATIONS: Left knee pain 4 months FINDINGS: Advanced narrowing osteoarthritis medial joint space No fracture or dislocation Moderate osteoarthritis patellofemoral joint. Small knee effusion IMPRESSION: Advanced narrowing/osteoarthritis medial joint space
== END | disposition home or self-care (01) ==
LOC: CDIM 07:47
PROVIDERS: PCP Nurse Practitioner Family; Referring Provider Orthopaedic Surgery; Visit Provider Orthopaedic Surgery
DX: M25.862 Other specified joint disorders, left knee (principal); M25.571 Pain in right ankle and joints of right foot; M17.12 Unilateral primary osteoarthritis, left knee; Z98.890 Other specified postprocedural states; Z87.81 Personal history of (healed) traumatic fracture
CPT/HCPCS: 73560; 73610

== ENCOUNTER → 2024-08-18 | Outpatient (CLI) | payer MEDICARE, MEDICAID, SELFPAY ==
--- NOTE | 2024-08-18 12:20 | XR_ITS ---
Examination: Bone densitometry Date and time of exam:August 18, 2024 1203 hours INDICATIONS: Menopause age 48, diabetic Technique: Lumbar spine and hip total bone mineralization values of an calculated. Peak reference and age match control results have been displayed. Findings: Lumbar spine total bone mineralization is1.010 gm/cm2. This is 0.3 standard deviations below peak reference. This is 1.5 standard deviations above age-matched controls. Hip total bone mineralization is 0.869 gm/cm2 This is 0.7 standard deviations below peak reference. This is 0.5 standard deviations above age-matched controls Impression: There is normal mineralization based on lumbar spine measurements. There is osteopenia based on hip measurements
== END | disposition home or self-care (01) ==
LOC: CDIM 11:32
PROVIDERS: Referring Provider Nurse Practitioner Family; Visit Provider Nurse Practitioner Family
DX: M85.88 Other specified disorders of bone density and structure, other site (principal)
CPT/HCPCS: 77080

== ENCOUNTER → 2024-12-02 | Outpatient (CLI) | payer MEDICARE, MEDICAID, SELFPAY ==
--- NOTE | 2024-12-02 10:26 | XR_ITS ---
EXAMINATION: Ankle, right 3 views . Technique: Ankle AP, oblique, lateral 3 views Date and time of exam: December 02, 2024 1030 hours, comparison August 09, 2024 INDICATIONS: Ankle fractures postop surgical reduction March 2024 FINDINGS: Healed bimalleolar fractures with satisfactory alignment Orthopedic hardware satisfactory position. 10 mm plantar bony calcaneal spur. Prominent ossification in the calyces insertion IMPRESSION: Healed bimalleolar fractures with satisfactory alignment
== END | disposition home or self-care (01) ==
PROVIDERS: PCP Orthopaedic Surgery; Referring Provider Orthopaedic Surgery; Visit Provider Orthopaedic Surgery
DX: M25.571 Pain in right ankle and joints of right foot (principal); Z87.81 Personal history of (healed) traumatic fracture
CPT/HCPCS: 73610